=== PATIENT | male | born 1980 | race Two or more races ===

== ENCOUNTER 2016-04-09 13:27 | Observation (INO) | payer OTHER ==
[2016-04-09] MEDS ORDERED: MESNA IVPB ONE (15:00)
[2016-04-09] MEDS ORDERED: NS 0.9% IVPB ONE (15:00)
[2016-04-09] MEDS ORDERED: IFOSFAMIDE IVPB ONE (15:00)
[2016-04-09] MEDS ORDERED: Ondansetron INJ* 2 MG/ML VIAL IV PRN (16:16)
[2016-04-09] MEDS ORDERED: Prochlorperazine TAB* 10 MG PO PRN ×2 (16:17→16:36)
[2016-04-09] MEDS ORDERED: ALPRAZolam TAB* 0.5 MG PO PRN (16:36)
[2016-04-09] MEDS ORDERED: Ondansetron TAB* 4 MG PO PRN (16:36)
[2016-04-09] MEDS ORDERED: HYDROcodone/ACETAMIN 5-325 MG* 1 TAB PO PRN (16:36)
[2016-04-09] MEDS ORDERED: LORazepam TAB(*) 0.5 MG PO PRN (16:38)
[2016-04-09] MEDS ORDERED: NS 0.9% 1000 ML* 1,000 ML IV ONE (16:45)
[2016-04-09] MEDS: NS 0.9% 1000 ML* 1,000 ML IV SCH ×2 (19:00→22:48)
[2016-04-10] MEDS: NS 0.9% 1000 ML* 1,000 ML IV SCH ×2 (05:32→12:20)
[2016-04-10] MEDS ORDERED: Omeprazole CAP* 20 MG PO SCH (09:00)
[2016-04-10] MEDS ORDERED: Citalopram TAB* 40 MG PO SCH (09:00)
[2016-04-10] MEDS ORDERED: Prenatal Vitamin TAB PO SCH (09:00)
--- NOTE | 2016-04-10 10:11 | DS ---
- Discharge Summary BRIEF OBV DISCHARGE SUMMARY ADMIT DATE: 04/09/2016 DISCHARGE DATE:04/10/2016 DISCHARGE MEDICATIONS: RESUME ALL HOME MEDS START NEUPOGEN 480 MCG DAILY TOMORROW DISCHARGE FOLLOW UP: 1. Dr. Mendes at [facility] 04/[address] Foster 04/25 HOSPITAL COURSE: David was admitted for cycle 2 of R-ICE for DLBCL on 04/09/2016. He tolerated this well and was discharged on 04/10/2016. His CT on the Thursday prior to admission shows mild progression of his disease concerning for primary refractory disease. Scan was done for mild but persistent SOB. I decided to treat with cycle 2 while awaiting work up at [facility], however I do not think he will be an immediate candidate for high dose chemotherapy. I will discuss with Dr. Mendes.
[2016-04-10] MEDS ORDERED: NS 0.9% IVPB ONE (15:00)
[2016-04-10] MEDS ORDERED: ETOPOSIDE IVPB ONE (15:00)
[2016-04-10 15:41] VITALS: BP 127/68
[2016-04-10] MEDS ORDERED: NS 0.9% 1000 ML* 1,000 ML IV ONE (16:45)
[2016-04-10] MEDS ORDERED: Dexamethasone IV* 8 MG in NS 0.9% 50 ML* 50 ML IVPB ONE (17:30)
[2016-04-10 18:43] LABS: Hematocrit 24 % (42-52); Hemoglobin 7.9 g/dl (14.0-18.0); Mean Corpuscular HGB Conc 33 g/dl (31-36); Mean Corpuscular Hemoglobin 29 pg (27-31); Mean Corpuscular Volume 89 fL (80-94); Mean Platelet Volume 9 um3 (7.4-10.4); Red Blood Count 2.71 10^6/ul (4.0-5.4); Red Cell Distribution Width 22 % (10.5-15)
[2016-04-10 18:56] LABS: Albumin 3.4 g/dL (3.2-5.2); BUN/Creatinine Ratio 9.4 (8-20); Calcium 8.4 mg/dL (8.6-10.3); EGFR African American 131.9 (>60); EGFR Non-African American 102.6 (>60); Globulin 2.9 g/dL (2-4); Potassium 3.4 mmol/L (3.5-5.0); Total Bilirubin 0.3 mg/dL (0.2-1.0); Total Protein 6.3 g/dL (6.4-8.9)
== END 2016-04-10 18:45 | disposition home or self-care (01) ==
LOC: INTOOBSV 13:43 → MED 13:43
PROVIDERS: ADMIT Internal Medicine Hematology & Oncology; ATTEND Internal Medicine Hematology & Oncology
DX: C83.30 Diffuse large B-cell lymphoma, unspecified site (principal)
CPT/HCPCS: 36415; 80053; 85025; 96361; 96367; 96372; 96413; 96417; 99217; 99219; A9270-GY; G0378; J1100; J1642; J9181; J9209; J9280

== ENCOUNTER 2016-04-29 21:25 | Inpatient (IN) | payer OTHER ==
[2016-04-29] MEDS ORDERED: Ondansetron INJ* 2 MG/ML VIAL IV ONE ×2 (21:59→23:44)
[2016-04-29] MEDS ORDERED: NS 0.9% 1000 ML* 1,000 ML IV ONE (21:59)
[2016-04-29] MEDS ORDERED: Morphine INJ* 4 MG/ML 1 ML CARPUJECT IV ONE (22:01)
[2016-04-29] MEDS ORDERED: Metoclopramide IV* 5 MG/ML 2 ML VIAL IV ONE (22:02)
[2016-04-29] MEDS ORDERED: diPHENhydraMINE IV* 50 MG/ML 1 ml VIAL (BENADRYL) IV ONE (22:03)
[2016-04-29 22:15] LABS: Hematocrit 18 % (42-52); Mean Corpuscular HGB Conc 34 g/dl (31-36); Mean Corpuscular Hemoglobin 29 pg (27-31); Mean Corpuscular Volume 87 fL (80-94); Mean Platelet Volume 10 um3 (7.4-10.4); Red Blood Count 2.07 10^6/ul (4.0-5.4); Red Cell Distribution Width 20 % (10.5-15); White Blood Count 7.9 10^3/ul (3.5-10.8)
[2016-04-29 22:17] LABS: Comments Flag Yes
[2016-04-29 22:18] LABS: Add Diff/Slide Review? Slide Review Added; Hemoglobin 6.1 g/dl (14.0-18.0)
[2016-04-29 22:20] LABS: Albumin 3.4 g/dL (3.2-5.2); BUN/Creatinine Ratio 8.3 (8-20); EGFR African American 100.1 (>60); EGFR Non-African American 77.8 (>60); Globulin 3.6 g/dL (2-4); Potassium 2.9 mmol/L (3.5-5.0); Total Bilirubin 0.4 mg/dL (0.2-1.0)
[2016-04-29 22:21] LABS: Troponin I 0.01 ng/mL (<0.04)
--- NOTE | 2016-04-29 22:31 | RAD ---
HISTORY: Cough, fever COMPARISONS: March 31, 2016, CT dated April 07, 2016 VIEWS:1: Single frontal portable view of the chest at 10:12 PM FINDINGS: LINES AND TUBES: There is a right-sided chest port from a subclavian approach with the tip overlying the superior vena cava. CARDIOMEDIASTINAL SILHOUETTE: The cardiomediastinal silhouette is normal for portable technique. PLEURA: The costophrenic angles are sharp. No pleural abnormalities are noted. LUNG PARENCHYMA: There has been interval development of confluent alveolar opacification of the right lower lung field. ABDOMEN: The upper abdomen is clear. There is no subphrenic gas. BONES AND SOFT TISSUES: No bone or soft tissue abnormalities are noted. IMPRESSION: RIGHT LOWER LUNG CONSOLIDATION. RECOMMEND FOLLOW-UP UNTIL RESOLUTION.
[2016-04-29 22:48] LABS: C Reactive Protein 200.15 mg/L (< 5.00)
[2016-04-29] MEDS ORDERED: Morphine INJ* 2 MG/ML 1 ML CARPUJECT IV ONE (22:52)
[2016-04-29] MEDS ORDERED: Cefepime(*) 2 GM in NS 0.9% 50 ML* 50 ML IVPB ONE (22:55)
[2016-04-29] MEDS ORDERED: Potassium Chlor TAB* 20 MEQ TAB.ER PO ONE (22:56)
[2016-04-29] MEDS ORDERED: NS 0.9% 50 ML* 50 ML ONE (23:04)
[2016-04-29 23:20] LABS: Magnesium 1.6 mg/dL (1.9-2.7)
[2016-04-29] MEDS ORDERED: Magnesium Oxide TAB* 400 MG PO ONE (23:25)
--- NOTE | 2016-04-29 23:29 | ED ---
Triston Herrmann Anna, scribed for Virgilio Catalan MD on 04/29/16 at 2159 . Headache - HPI Summary HPI Summary: Patient is a 36 y/o male coming to [facility] presenting with a worsening JUAREZ that began four days ago. He describes the severity of the pain as 10/10. He has additionally had emesis, chills, cough, and a fever, most recently recorded as 100.9 at home. Denies diarrhea, sore throat, rhinorrhea, or nasal drip. 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 He just had one unit of blood transfusion yesterday when he was at a regular checkup for his CA. He has B-Cell Lymphoma. His last chemotherapy treatment was 04/14/2016. - History Of Current Complaint Chief Complaint: EDFever Stated Complaint: FEVER,VOMITING/CA PT Time Seen by Provider: 04/29/16 21:52 Hx Obtained From: Patient, Family/Fisher Pot Onset/Duration: Started days ago - Allergies/Home Medications Allergies/Adverse Reactions: Allergies Allergy/AdvReac Type Severity Reaction Status Date / Time Adhesive Tape [Paper Tape] Allergy Intermediate Rash Verified 04/07/16 15:44 PMH/Surg Hx/FS Hx/Imm Hx Endocrine/Hematology History: Denies: Hx Diabetes, Hx Thyroid Disease Cardiovascular History: Reports: Hx Deep Vein Thrombosis, Other Cardiovascular Problems/Disorders - HODGKINS LYMPHOMA Denies: Hx Hypercholesterolemia, Hx Hypertension, Hx Pacemaker/ICD, Hx Peripheral Vascular Disease Respiratory History: Denies: Other Respiratory Problems/Disorders GI History: Reports: Hx Gastroesophageal Reflux Disease Denies: Other GI Disorders History: Denies: Hx Dialysis, Hx Renal Disease Musculoskeletal History: Denies: Hx Arthritis, Hx Rheumatoid Arthritis, Hx Osteoporosis, Other Musculoskeletal History Sensory History: Reports: Hx Contacts or Glasses Denies: Hx Cataracts, Hx Glaucoma, Hx Hearing Aid Opthamlomology History: Reports: Hx Contacts or Glasses Denies: Hx Cataracts, Hx Glaucoma Neurological History: Denies: Hx Headaches, Hx Seizures, Hx Transient Ischemic Attacks (TIA) Psychiatric History: Reports: Hx Anxiety, Hx Depression Denies: Hx Panic Disorder - Cancer History Cancer Type, Location and Year: Hodgkins Lympnoma 6 months ago Hx Chemotherapy: Yes - Surgical History Surgery Procedure, Year, and Place: surgery L arm 1996 - repair of artery/vein( REPAIR OF LACERATION). appendectomy at 9 or 10 yo. BX RIGHT neck Hx Anesthesia Reactions: No Infectious Disease History: No Infectious Disease History: Denies: Traveled Outside the [place] in Last 30 Days - Family History Known Family History: Positive: Other - Bladder CA - Social History Alcohol Use: Rare Alcohol Amount: SOCIAL Hx Substance Use: No Substance Use Type: Reports: Marijuana Substance Use Comment - Amount & Last Used: DAILY Hx Tobacco Use: Yes Smoking Status (MU): Former Smoker Type: Cigarettes Amount Used/How Often: PACK Have You Smoked in the Last Year: No Review of Systems Positive: Fever, Chills Negative: Sore Throat, Nasal Discharge Positive: Cough Positive: Vomiting. Negative: Diarrhea Positive: Headache All Other Systems Reviewed And Are Negative: Yes Physical Exam - Summary Physical Exam Summary: VITAL SIGNS: Reviewed. GENERAL: Patient is a well developed and nourished male who seems pale and fatigued HEAD AND FACE: No signs of trauma. No ecchymosis, hematomas or skull depressions. No sinus tenderness. EYES: PERRLA, EOMI x 2, pale conjunctiva. EARS: Hearing grossly intact. Ear canals and tympanic membranes are within normal limits. MOUTH: Oropharynx within normal limits. NECK: Supple, trachea is midline, no adenopathy, no JVD, no carotid bruit, no c- spine tenderness, neck with full ROM. CHEST: Symmetric, no tenderness at palpation LUNGS: Clear to auscultation bilaterally. No wheezing or crackles. CVS: Regular rate and rhythm, S1 and S2 present, no murmurs or gallops appreciated. ABDOMEN: Soft, non-tender. No signs of distention. No rebound no guarding, and no masses palpated. Bowel sounds are normal. EXTREMITIES: FROM in all major joints, no edema, no cyanosis or clubbing. NEURO: Alert and oriented x 3. No acute neurological deficits. Speech is normal and follows commands. SKIN: Dry and warm Triage Information Reviewed: Yes Vital Signs On Initial Exam: Initial Vitals Temp Pulse Resp BP Pulse Ox 99.3 F 110 18 109/62 96 04/29/16 21:52 04/29/16 21:52 04/29/16 21:52 04/29/16 21:52 04/29/16 21:52 Vital Signs Reviewed: Yes Diagnostics - Vital Signs Vital Signs Temp Pulse Resp BP Pulse Ox 04/29/16 21:52 99.3 F 110 18 109/62 96 - Laboratory Lab Results: Lab Results 04/29/16 04/29/16 04/29/16 Range/Units 21:45 21:45 21:45 WBC 7.9 (3.5-10.8) 10^3/ul RBC 2.07 L (4.0-5.4) 10^6/ul Hgb 6.1 L* (14.0-18.0) g/dl Hct 18 L (42-52) % MCV 87 (80-94) fL MCH 29 (27-31) pg MCHC 34 (31-36) g/dl RDW 20 H (10.5-15) % Plt Count 142 L (150-450) 10^3/ul MPV 10 (7.4-10.4) um3 Neut % (Auto) 80.2 (38-83) % Lymph % (Auto) 8.5 L (25-47) % Berks % (Auto) 11.1 H (1-9) % Eos % (Auto) 0 (0-6) % Baso % (Auto) 0.2 (0-2) % Absolute Neuts (auto) 6.3 (1.5-7.7) 10^3/ul Absolute Lymphs (auto) 0.7 L (1.0-4.8) 10^3/ul Absolute Monos (auto) 0.9 H (0-0.8) 10^3/ul Absolute Eos (auto) 0 (0-0.6) 10^3/ul Absolute Basos (auto) 0 (0-0.2) 10^3/ul Absolute Nucleated RBC 0.02 10^3/ul Nucleated RBC % 0.3 INR (Anticoag Therapy) 1.13 H (0.89-1.11) APTT 28.9 (26.0-36.3) seconds Fibrinogen 579 H (110.8-404.3) mg/dL Sodium 138 (133-145) mmol/L Potassium 2.9 L (3.5-5.0) mmol/L Chloride 99 L (101-111) mmol/L Carbon Dioxide 26 (22-32) mmol/L Anion Gap 13 H (2-11) mmol/L BUN 9 (6-24) mg/dL Creatinine 1.08 (0.67-1.17) mg/dL Est GFR ( Amer) 100.1 (>60) Est GFR (Non-Af Amer) 77.8 (>60) BUN/Creatinine Ratio 8.3 (8-20) Glucose 174 H (70-100) mg/dL Lactic Acid (0.5-2.0) mmol/L Calcium 9.0 (8.6-10.3) mg/dL Total Bilirubin 0.40 (0.2-1.0) mg/dL AST 12 L (13-39) U/L ALT 9 (7-52) U/L Alkaline Phosphatase 74 (34-104) U/L Total Creatine Kinase 77 (10-223) U/L Troponin I 0.01 (<0.04) ng/mL C-Reactive Protein 200.15 H (< 5.00) mg/L B-Natriuretic Peptide ( - 100) pg/mL Total Protein 7.0 (6.4-8.9) g/dL Albumin 3.4 (3.2-5.2) g/dL Globulin 3.6 (2-4) g/dL Albumin/Globulin Ratio 0.9 L (1-3) Influenza A (Rapid) (Negative) Influenza B (Rapid) (Negative) Blood Type Antibody Screen Crossmatch 04/29/16 04/29/16 04/29/16 Range/Units 21:45 21:45 21:45 WBC (3.5-10.8) 10^3/ul RBC (4.0-5.4) 10^6/ul Hgb (14.0-18.0) g/dl Hct (42-52) % MCV (80-94) fL MCH (27-31) pg MCHC (31-36) g/dl RDW (10.5-15) % Plt Count (150-450) 10^3/ul MPV (7.4-10.4) um3 Neut % (Auto) (38-83) % Lymph % (Auto) (25-47) % Berks % (Auto) (1-9) % Eos % (Auto) (0-6) % Baso % (Auto) (0-2) % Absolute Neuts (auto) (1.5-7.7) 10^3/ul Absolute Lymphs (auto) (1.0-4.8) 10^3/ul Absolute Monos (auto) (0-0.8) 10^3/ul Absolute Eos (auto) (0-0.6) 10^3/ul Absolute Basos (auto) (0-0.2) 10^3/ul Absolute Nucleated RBC 10^3/ul Nucleated RBC % INR (Anticoag Therapy) (0.89-1.11) APTT (26.0-36.3) seconds Fibrinogen (110.8-404.3) mg/dL Sodium (133-145) mmol/L Potassium (3.5-5.0) mmol/L Chloride (101-111) mmol/L Carbon Dioxide (22-32) mmol/L Anion Gap (2-11) mmol/L BUN (6-24) mg/dL Creatinine (0.67-1.17) mg/dL Est GFR ( Amer) (>60) Est GFR (Non-Af Amer) (>60) BUN/Creatinine Ratio (8-20) Glucose (70-100) mg/dL Lactic Acid 2.3 H* (0.5-2.0) mmol/L Calcium (8.6-10.3) mg/dL Total Bilirubin (0.2-1.0) mg/dL AST (13-39) U/L ALT (7-52) U/L Alkaline Phosphatase (34-104) U/L Total Creatine Kinase (10-223) U/L Troponin I (<0.04) ng/mL C-Reactive Protein (< 5.00) mg/L B-Natriuretic Peptide 78 ( - 100) pg/mL Total Protein (6.4-8.9) g/dL Albumin (3.2-5.2) g/dL Globulin (2-4) g/dL Albumin/Globulin Ratio (1-3) Influenza A (Rapid) (Negative) Influenza B (Rapid) (Negative) Blood Type O Positive Antibody Screen Negative Crossmatch See Detail 04/29/16 Range/Units 22:32 WBC (3.5-10.8) 10^3/ul RBC (4.0-5.4) 10^6/ul Hgb (14.0-18.0) g/dl Hct (42-52) % MCV (80-94) fL MCH (27-31) pg MCHC (31-36) g/dl RDW (10.5-15) % Plt Count (150-450) 10^3/ul MPV (7.4-10.4) um3 Neut % (Auto) (38-83) % Lymph % (Auto) (25-47) % Berks % (Auto) (1-9) % Eos % (Auto) (0-6) % Baso % (Auto) (0-2) % Absolute Neuts (auto) (1.5-7.7) 10^3/ul Absolute Lymphs (auto) (1.0-4.8) 10^3/ul Absolute Monos (auto) (0-0.8) 10^3/ul Absolute Eos (auto) (0-0.6) 10^3/ul Absolute Basos (auto) (0-0.2) 10^3/ul Absolute Nucleated RBC 10^3/ul Nucleated RBC % INR (Anticoag Therapy) (0.89-1.11) APTT (26.0-36.3) seconds Fibrinogen (110.8-404.3) mg/dL Sodium (133-145) mmol/L Potassium (3.5-5.0) mmol/L Chloride (101-111) mmol/L Carbon Dioxide (22-32) mmol/L Anion Gap (2-11) mmol/L BUN (6-24) mg/dL Creatinine (0.67-1.17) mg/dL Est GFR ( Amer) (>60) Est GFR (Non-Af Amer) (>60) BUN/Creatinine Ratio (8-20) Glucose (70-100) mg/dL Lactic Acid (0.5-2.0) mmol/L Calcium (8.6-10.3) mg/dL Total Bilirubin (0.2-1.0) mg/dL AST (13-39) U/L ALT (7-52) U/L Alkaline Phosphatase (34-104) U/L Total Creatine Kinase (10-223) U/L Troponin I (<0.04) ng/mL C-Reactive Protein (< 5.00) mg/L B-Natriuretic Peptide ( - 100) pg/mL Total Protein (6.4-8.9) g/dL Albumin (3.2-5.2) g/dL Globulin (2-4) g/dL Albumin/Globulin Ratio (1-3) Influenza A (Rapid) Negative (Negative) Influenza B (Rapid) Negative (Negative) Blood Type Antibody Screen Crossmatch Result Diagrams: 04/29/16 21:45 04/29/16 21:45 Lab Statement: Any lab studies that have been ordered have been reviewed, and results considered in the medical decision making process. - Radiology CXR Xray Interpretation: Positive (See Comments) Radiology Interpretation Completed By: Radiologist - IMPRESSION: RIGHT LOWER LUNG CONSOLIDATION. RECOMMEND FOLLOW-UP UNTIL RESOLUTION. - EKG None EKG Interpretation: Pt refused EKG. Headache Course/Dx - Course Assessment/Plan: Patient is a 36 y/o male coming to [facility] presenting with a worsening JUAREZ that began four days ago. He describes the severity of the pain as 10/10. He has additionally had emesis, chills, cough, and a fever, most recently recorded as 100.9 at home. Denies diarrhea, sore throat, rhinorrhea, or nasal drip. 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 He just had one unit of blood transfusion yesterday when he was at a regular checkup for his CA. He has B-Cell Lymphoma. His last chemotherapy treatment was 04/14/2016. Bloodwork shows WBC of 7.9, RBC of 2.07, Hgb of 6.1, Hct of 18, and Platelet count of 142. Potassium is 2.9, for which the patient was given potassium chloride. Glucose is 174, and C-Reactive Protein is 200.15. Influenza A and B are negative. Lactic acid is 2.3. AST is 12. CXR shows right lower lung consolidation, possibly consistent with PNA. Pt was initially given IV fluids, morphine for pain, and Cefepmine for PNA. Pt will be given two units of packed RBC. Discussed case with Dr. Foster from oncology. He recommended blood transfusion, Abx, and admission to the hospitalist. I consulted with Dr. Phan, who accepts the pt for admission. The pt is hemodynamically stable and A & Ox3. - Diagnoses Differential Diagnosis/HQI/PQRI: Migraine, Other - Sepsis, pneumonia, cronchitis , anemia Provider Diagnoses: Symptomatic anemia, B-cell lymphoma, Pneumonia, Hypomagnesemia, Hypokalemia - Physician Notifications Discussed Care Of Patient With: Dr. Foster (oncology) at 2249. He recommends we give two units of blood and admit to hospitalist. Dr. Phan (hospitalist) at 2304. Agrees to accept patient for admission. Discharge - Discharge Plan Condition: Stable Disposition: ADMITTED TO [facility] Referrals: Rashad Foster MD [Primary Care Provider] - The documentation as recorded by the Triston kevin Anna accurately reflects the service I personally performed and the decisions made by , Virgilio Catalan MD.
[2016-04-30] MEDS ORDERED: Docusate CAP* 100 MG PO PRN (00:32)
[2016-04-30] MEDS ORDERED: Al Hydrox/Mg Hydrox/Simet LIQ* 30 ML UDC PO PRN (00:32)
[2016-04-30] MEDS ORDERED: Senna TAB PO PRN (00:32)
[2016-04-30] MEDS ORDERED: Magnesium Hydroxide LIQ* 30 ML UDC PO PRN (00:32)
[2016-04-30] MEDS ORDERED: NS 0.9% 1000 ML* 1,000 ML IV ONE (00:42)
[2016-04-30] MEDS: Acetaminophen TAB* 325 MG PO PRN ×3 (00:49→18:41)
[2016-04-30] MEDS ORDERED: Magnesium Sulfate 1 GM IV* 1 GM/100 ML BAG IV ONE (00:50)
--- NOTE | 2016-04-30 04:07 | HP ---
HISTORY AND PHYSICAL: DATE OF : 82 PRIMARY CARE PHYSICIAN AND ONCOLOGIST: Dr. Rashad Foster. DATE OF ADMISSION: 04/30/16. TIME OF EVALUATION: 29 CHIEF COMPLAINT: Headache and fever. HISTORY OF PRESENT ILLNESS: This is a 36-year-old male with a past medical history of diffuse large B-cell lymphoma, status post chemotherapy and radiation , still with ongoing chemotherapy, now getting RICE for his chemotherapy regimen who presents to the emergency room with persistent headache and a temp. The fiancee provides most of the history and she states he has had a diffuse headache for the past few days with a low grade temp. He was doing okay and was seen at [facility] on the for evaluation for bone marrow transplant. He was also found to have his hemoglobin down to 5. He was given a unit of blood and sent home. Today, he spiked the temp at home to 100.9, with a mild cough, nausea, vomiting, no diarrhea, no abdominal pain. No rash. They also noted on the , he had some slurred speech and leg numbness. The patient's biggest complaint right now is the diffuse headache. No neck tenderness or nuchal rigidity. He denies any chest pain or shortness of breath. He still remains nauseated. Otherwise, remaining review of systems is negative. In the emergency room, the patient had labs, imaging. He was given a liter of normal saline, 2 g of cefepime, Benadryl, magnesium, Reglan, 6 mg total of morphine, 8 mg of Zofran, potassium, and was referred to the hospitalist service for further evaluation. PAST MEDICAL HISTORY: 1. Diffuse large B-cell lymphoma, diagnosed in July 2015, received ABVD and now is on RICE chemotherapy regimen, followed by Dr. Foster. He also had radiation treatment on January 2016. He is also being seen at [facility] for evaluation of bone marrow transplant. 2. Depression/anxiety. 3. GERD. MEDICATIONS: 1. Alprazolam 0.5 mg every 6 hours as needed for anxiety. 2. Ativan 0.5 mg to 1 mg as needed for anxiety, nausea. 3. Celexa 4 mg p.o. daily. 4. [place] 5/325 every 4 hours as needed for pain. 5. Multivitamin. 6. Prilosec 20 mg daily. ALLERGIES: ADHESIVE TAPE. FAMILY HISTORY: Mother alive and healthy. Father is alive. History of bladder cancer and coronary artery disease. SOCIAL HISTORY: The patient is currently unemployed, lives with his fiance, Lurdse Cade who is his healthcare proxy, phone number is [phone]. He quit smoking 3 years ago. At that time, he had a [id number] history. He is a social drinker. He does admit to marijuana use daily. Code status is full code. REVIEW OF SYSTEMS: As mentioned in the HPI. PHYSICAL EXAMINATION VITAL SIGNS: T-max 99.3, down to 98.3; pulse 99; respiratory rate 18; oxygen saturation 96% on room air; blood pressure 103/50. HEENT: The patient with lymphadenopathy, bilateral cervical, nontender. No erythema. Oropharynx: Mucous membranes dry. Pupils are active and icteric. Head: Normocephalic. Cardiac: Tachycardia. No murmurs, rubs, or gallops. NECK: Supple. No nuchal rigidity. LUNGS: Diminished breath sounds. No wheezes, rhonchi, or rales. ABDOMEN: Soft, nontender, nondistended. EXTREMITIES: No clubbing, cyanosis, or edema.+1 DPs. NEUROLOGIC: Alert and oriented x3. No focal neurologic deficits. LABORATORY DATA: White count 7.9, hemoglobin 6.1, hematocrit 18, platelets 142. INR is 1.13. Sodium 138, potassium 2.9, chloride 99, bicarb 26, BUN 9, creatinine 1.08, glucose 174, lactic acid 2.3, magnesium 1.6, AST is 12, CRP is 200. BNP is 78. Flu negative. RADIOGRAPHIC DATA: Chest x-ray shows right lower lobe consolidation. Recommend followup until resolution. IMPRESSION: This is a 36-year-old male with past medical history of diffuse large cell B-cell lymphoma on chemotherapy, status post radiation, who presents to the emergency room with a fever and headache. 1. Fever and headache. Assessment: The patient was found with a right lower lobe pneumonia. He is also anemic, likely secondary to his chemotherapy. He does not have any nuchal rigidity or tenderness to suggest meningitis. He does have a mild cough. I am concerned about his slurred speech and leg numbness few days ago that has since resolved. Plan: We will give him another liter of normal saline and continue him on IV fluids with potassium repletion and magnesium repletion. Continue him on the cefepime and follow up on blood cultures and we will also obtain a head CT. I presume that Oncology will take over his service in the morning. The patient is also getting one unit of PRBCs. Followup H and H in the morning. If head CT is normal and still febrile with headache, consider LP. 2. Anemia. Assessment: Secondary to chemotherapy. Plan: Of note he got a unit of blood two days ago at [facility]. 3. Diffuse large cell B-cell lymphoma. Followup with Oncology in the morning. 4. Depression and anxiety. Continue with Celexa, Ativan, and alprazolam. 5. FEN. Place the patient on regular diet with IV fluids. 6. DVT prophylaxis. The patient scores high risk. We will place him on SCDs. 7. Code status. Full code. PATIENT TIME: Greater than 50 minutes were spent during the history and physical and more than half the time spent in direct patient contact. [id number]/[facility] #: [id number] MTDD
[2016-04-30 06:11] LABS: Comments Flag Yes; Hematocrit 20 % (42-52); Hemoglobin 6.7 g/dl (14.0-18.0); Mean Corpuscular HGB Conc 33 g/dl (31-36); Mean Corpuscular Hemoglobin 29 pg (27-31); Mean Corpuscular Volume 87 fL (80-94); Mean Platelet Volume 9 um3 (7.4-10.4); Red Blood Count 2.33 10^6/ul (4.0-5.4); Red Cell Distribution Width 18 % (10.5-15); White Blood Count 6.8 10^3/ul (3.5-10.8)
[2016-04-30 06:32] LABS: BUN/Creatinine Ratio 7.5 (8-20); Calcium 8.4 mg/dL (8.6-10.3); EGFR African American 118.9 (>60); EGFR Non-African American 92.5 (>60); Magnesium 2.1 mg/dL (1.9-2.7); Potassium 3.7 mmol/L (3.5-5.0)
[2016-04-30] MEDS: Omeprazole CAP* 20 MG PO SCH (07:28)
[2016-04-30] MEDS: Prenatal Vitamin TAB PO SCH (07:28)
[2016-04-30] MEDS: Citalopram TAB* 40 MG PO SCH (07:28)
--- NOTE | 2016-04-30 09:37 | PN ---
Progress Note - Progress Note SOAP: Subjective: feels better this am but not great. still has headaches. reports new onset headaches thursday. had several hours of slurred speech and leg numbness at that time. he was not aware that he was slurring his speech at the time but his family reports that it was clearly abnormal. He went to [place] on Thursday and was found to have a Hb of 5 and given one unit of blood. He was sent home and yesterday had fevers to 100.9 at home and persistent headache. No nausea or vomiting. no photophobia. mild cough but not marked. new neck tenderness on the right only when bending his head down. Objective: Vital Signs Temp Pulse Resp BP Pulse Ox 97.9 F 78 16 142/73 94 04/30/16 07:22 04/30/16 07:22 04/30/16 07:37 04/30/16 07:22 04/30/16 07:36 lying flat in NAD perr eomi no photophobia no nuchal rigidity, tenderness over right side of neck on full extension of neck with no clear palpable adenopathy vesicular bs right base but poor inspiratory effort s1 s2 nl soft nt +bs no le edema A+O x 3, nonfocal neurological exam Laboratory Results - last 24 hr 04/29/16 04/29/16 04/29/16 21:45 21:45 21:45 WBC 7.9 RBC 2.07 L Hgb 6.1 L* Hct 18 L MCV 87 MCH 29 MCHC 34 RDW 20 H Plt Count 142 L MPV 10 Neut % (Auto) 80.2 Lymph % (Auto) 8.5 L [place] % (Auto) 11.1 H Eos % (Auto) 0 Baso % (Auto) 0.2 Absolute Neuts (auto) 6.3 Absolute Lymphs (auto) 0.7 L Absolute Monos (auto) 0.9 H Absolute Eos (auto) 0 Absolute Basos (auto) 0 Absolute Nucleated RBC 0.02 Nucleated RBC % 0.3 INR (Anticoag Therapy) 1.13 H APTT 28.9 Fibrinogen 579 H Sodium 138 Potassium 2.9 L Chloride 99 L Carbon Dioxide 26 Anion Gap 13 H BUN 9 Creatinine 1.08 Est GFR ( Amer) 100.1 Est GFR (Non-Af Amer) 77.8 BUN/Creatinine Ratio 8.3 Glucose 174 H Lactic Acid Calcium 9.0 Magnesium 1.6 L Total Bilirubin 0.40 AST 12 L ALT 9 Alkaline Phosphatase 74 Total Creatine Kinase 77 Troponin I 0.01 C-Reactive Protein 200.15 H B-Natriuretic Peptide Total Protein 7.0 Albumin 3.4 Globulin 3.6 Albumin/Globulin Ratio 0.9 L Influenza A (Rapid) Influenza B (Rapid) Blood Type Antibody Screen Crossmatch 04/29/16 04/29/16 04/29/16 21:45 21:45 21:45 WBC RBC Hgb Hct MCV MCH MCHC RDW Plt Count MPV Neut % (Auto) Lymph % (Auto) [place] % (Auto) Eos % (Auto) Baso % (Auto) Absolute Neuts (auto) Absolute Lymphs (auto) Absolute Monos (auto) Absolute Eos (auto) Absolute Basos (auto) Absolute Nucleated RBC Nucleated RBC % INR (Anticoag Therapy) APTT Fibrinogen Sodium Potassium Chloride Carbon Dioxide Anion Gap BUN Creatinine Est GFR ( Amer) Est GFR (Non-Af Amer) BUN/Creatinine Ratio Glucose Lactic Acid 2.3 H* Calcium Magnesium Total Bilirubin AST ALT Alkaline Phosphatase Total Creatine Kinase Troponin I C-Reactive Protein B-Natriuretic Peptide 78 Total Protein Albumin Globulin Albumin/Globulin Ratio Influenza A (Rapid) Influenza B (Rapid) Blood Type O Positive Antibody Screen Negative Crossmatch See Detail 04/29/16 04/30/16 04/30/16 22:32 05:33 05:33 WBC 6.8 RBC 2.33 L Hgb 6.7 L Hct 20 L MCV 87 MCH 29 MCHC 33 RDW 18 H Plt Count 132 L MPV 9 Neut % (Auto) 77.3 Lymph % (Auto) 8.7 L [place] % (Auto) 13.8 H Eos % (Auto) 0 Baso % (Auto) 0.2 Absolute Neuts (auto) 5.3 Absolute Lymphs (auto) 0.6 L Absolute Monos (auto) 0.9 H Absolute Eos (auto) 0 Absolute Basos (auto) 0 Absolute Nucleated RBC 0.01 Nucleated RBC % 0.1 INR (Anticoag Therapy) APTT Fibrinogen Sodium 138 Potassium 3.7 Chloride 105 Carbon Dioxide 26 Anion Gap 7 BUN 7 Creatinine 0.93 Est GFR ( Amer) 118.9 Est GFR (Non-Af Amer) 92.5 BUN/Creatinine Ratio 7.5 L Glucose 123 H Lactic Acid Calcium 8.4 L Magnesium 2.1 Total Bilirubin AST ALT Alkaline Phosphatase Total Creatine Kinase Troponin I C-Reactive Protein B-Natriuretic Peptide Total Protein Albumin Globulin Albumin/Globulin Ratio Influenza A (Rapid) Negative Influenza B (Rapid) Negative Blood Type Antibody Screen Crossmatch 04/30/16 05:33 WBC RBC Hgb Hct MCV MCH MCHC RDW Plt Count MPV Neut % (Auto) Lymph % (Auto) [place] % (Auto) Eos % (Auto) Baso % (Auto) Absolute Neuts (auto) Absolute Lymphs (auto) Absolute Monos (auto) Absolute Eos (auto) Absolute Basos (auto) Absolute Nucleated RBC Nucleated RBC % INR (Anticoag Therapy) APTT Fibrinogen Sodium Potassium Chloride Carbon Dioxide Anion Gap BUN Creatinine Est GFR ( Amer) Est GFR (Non-Af Amer) BUN/Creatinine Ratio Glucose Lactic Acid 0.6 Calcium Magnesium Total Bilirubin AST ALT Alkaline Phosphatase Total Creatine Kinase Troponin I C-Reactive Protein B-Natriuretic Peptide Total Protein Albumin Globulin Albumin/Globulin Ratio Influenza A (Rapid) Influenza B (Rapid) Blood Type Antibody Screen Crossmatch head CT: official read pending, my read no gross abnormalities cxr: RLL infiltrate Acetaminophen (Tylenol Tab*) 650 mg PO Q4H PRN PRN Reason: FEVER/PAIN Last Admin: 04/30/16 07:28 Dose: 650 mg Al Hydrox/Mg Hydrox/Simethicone (Maalox Plus*) 30 ml PO Q6H PRN PRN Reason: INDIGESTION Alprazolam (Xanax Tab*) 0.5 mg PO Q6H PRN PRN Reason: ANXIETY Citalopram Hydrobromide (Celexa Tab*) 40 mg PO DAILY [facility] Last Admin: 04/30/16 07:28 Dose: 40 mg Docusate Sodium (Colace Cap*) 100 mg PO BID PRN PRN Reason: CONSTIPATION Hydromorphone HCl (Dilaudid Iv*) 1 mg IV SLOW PU Q4H PRN PRN Reason: PAIN Potassium Chloride/Sodium Chloride (Ns 0.9% W/ 20 Meq Kcl 1000 Ml*) 1,000 mls @ 125 mls/hr IV PER RATE KATHIE Cefepime HCl 1 gm/ Sodium (Chloride) 50 mls @ 100 mls/hr IVPB Q12H KATHIE Lorazepam (Ativan Tab(*)) 0.5 mg PO Q6H PRN PRN Reason: NAUSEA Magnesium Hydroxide (Milk Of Magnbritni Liq*) 30 ml PO Q4H PRN PRN Reason: CONSTIPATION Multivitamins ( Vitamin Tab*) 1 tab PO DAILY [facility] Last Admin: 04/30/16 07:28 Dose: 1 tab Omeprazole (Prilosec Cap*) 20 mg PO DAILY [facility] Last Admin: 04/30/16 07:28 Dose: 20 mg Ondansetron HCl (Zofran Inj*) 4 mg IV Q4H PRN PRN Reason: NAUSEA/VOMITING Oxycodone/Acetaminophen (Percocet 5/325 Tab*) 1 tab PO Q4H PRN PRN Reason: Pain Senna (Senokot Tab*) 1 tab PO BID PRN PRN Reason: CONSTIPATION Assessment: 36 yo M w primary refractory DLBCL recently treated with R-ICE chemotherapy presenting with fevers, headaches, an episode of slurred speech and leg numbness and found to have a RLL infiltrate on CXR and marked anemia. I am concerned that this could represent a meningitis (or leptomeningeal carcinomatosis) and have recommended a lumbar puncture. I have discussed with Dr. Alanis. Plan: -cont cefepime for PNA -lumbar puncture for cell count, glucose, protein, gram stain/culture, cytology -recheck CBC this am, inappropriate bump to 2 Units, will confirm and if still low check stool guaiac and hemolysis labs -cont IVFs with potassium repletion full code DVT prophylaxis after LP
[2016-04-30 10:03] LABS: Hematocrit 22 % (42-52); Hemoglobin 7.4 g/dl (14.0-18.0)
[2016-04-30] MEDS: NS 0.9% w/ 20 Meq KCL 1000 ML* 1,000 ML IV SCH ×2 (12:35→21:16)
[2016-04-30] MEDS: HYDROmorphone INJ* 1 MG/ML CARPUJECT SYRINGE IV SLOW PU PRN (13:56)
[2016-04-30] MEDS: Cefepime(*) 1 GM in NS 0.9% 50 ML* 50 ML IVPB SCH (14:19)
[2016-04-30 14:37] LABS: CSF Glucose 64 mg/dL (40-70)
[2016-04-30 14:43] LABS: Body Fluid Appearance Clear
[2016-04-30 14:44] LABS: BF RBC Count #1 0; BF RBC Count #2 0; BF WBC Count #1 3; BF WBC Count #2 1; Body Fluid WBC 2 /mcL; RBC counts within 6%? Yes; WBC counts within 15%? Yes
[2016-04-30 14:53] LABS: Body Fluid Total Cells Counted 13
[2016-04-30] MEDS: Ondansetron INJ* 2 MG/ML VIAL IV PRN (18:10)
[2016-04-30] MEDS: LORazepam TAB(*) 0.5 MG PO PRN (18:36)
[2016-04-30] MEDS: ALPRAZolam TAB* 0.5 MG PO PRN (21:05)
[2016-05-01] MEDS: oxyCODONE/Acetamin 5/325 MG* TAB PO PRN (00:26)
[2016-05-01] MEDS: LORazepam TAB(*) 0.5 MG PO PRN ×2 (00:29→06:29)
[2016-05-01] MEDS: Cefepime(*) 1 GM in NS 0.9% 50 ML* 50 ML IVPB SCH ×2 (00:30→12:10)
[2016-05-01] MEDS: Ondansetron INJ* 2 MG/ML VIAL IV PRN ×2 (00:30→06:30)
[2016-05-01] MEDS: NS 0.9% w/ 20 Meq KCL 1000 ML* 1,000 ML IV SCH ×2 (05:22→13:30)
[2016-05-01] MEDS: HYDROmorphone INJ* 1 MG/ML CARPUJECT SYRINGE IV SLOW PU PRN (06:30)
[2016-05-01 07:10] LABS: Hematocrit 22 % (42-52); Hemoglobin 7.4 g/dl (14.0-18.0); Mean Corpuscular HGB Conc 34 g/dl (31-36); Mean Corpuscular Hemoglobin 29 pg (27-31); Mean Corpuscular Volume 87 fL (80-94); Mean Platelet Volume 10 um3 (7.4-10.4); Red Blood Count 2.54 10^6/ul (4.0-5.4); Red Cell Distribution Width 18 % (10.5-15); White Blood Count 11.2 10^3/ul (3.5-10.8)
[2016-05-01 07:26] LABS: Albumin 3.1 g/dL (3.2-5.2); BUN/Creatinine Ratio 7.2 (8-20); Calcium 8.6 mg/dL (8.6-10.3); EGFR African American 135.6 (>60); EGFR Non-African American 105.4 (>60); Globulin 3.3 g/dL (2-4); Potassium 3.9 mmol/L (3.5-5.0); Total Bilirubin 0.5 mg/dL (0.2-1.0); Total Protein 6.4 g/dL (6.4-8.9)
[2016-05-01] MEDS: Prenatal Vitamin TAB PO SCH (08:20)
[2016-05-01] MEDS: Omeprazole CAP* 20 MG PO SCH (08:20)
[2016-05-01] MEDS: Citalopram TAB* 40 MG PO SCH (08:20)
--- NOTE | 2016-05-01 09:11 | PM ---
PROCEDURE NOTE: DATE OF VISIT: 04/30/16 CHIEF COMPLAINT: Headache and fever. HISTORY: The patient is a 36-year-old male who is an inpatient in room 411. The patient has a past history of diffuse large B-cell lymphoma, status post chemotherapy and radiation. He presented to the emergency room with persistent headache and temperature. He has been in the hospital for those complaints. He has been doing ongoing chemotherapy and was seen at [place] on the 28 of April f or an evaluation of bone marrow transplant. He was found to have a hemoglobin of 5 and was given a unit of blood and sent home. On 04/30 his fever spiked to 100.9 with a mild cough, nausea, vomiting , no diarrhea, no abdominal pain and was admitted to the hospital. He states on the 27 of April , he had some slurred speech and leg numbness. Now the patient's biggest complaint is the diffuse h eadache. No neck tenderness or nuchal rigidity. I was asked by Dr. Holloway to perform a diagnosti c lumbar puncture. PAST MEDICAL HISTORY: Significant for: 1. Diffuse large B-cell lymphoma diagnosed in July 2015. 2. Depression and anxiety. 3. GERD. MEDICATIONS: 1. Alprazolam 0.5 mg every 6 hours as needed for anxiety. 2. Ativan 0.5 mg to 1 mg as needed for anxiety, nausea. 3. Celexa 40 mg per day. 4. Prilosec 20 mg a day. 5. Acetaminophen 650 mg p.o. q.4 hours p.r.n. 6. Colace 100 mg p.o. b.i.d. p.r.n. 7. Zofran 4 mg IV q.4 hours p.r.n. 8. Oxycodone/acetaminophen 5/325 mg 1 tablet p.o. q.4 hours p.r.n. pain. 9. Senna 1 tablet p.o. b.i.d. 10. Hydromorphone 1 mg slow IV q.4 hours p.r.n. pain. 11. Cefepime 1 g q.12 hours. ALLERGIES: ADHESIVE TAPE and PENICILLIN. SOCIAL HISTORY: The patient is unemployed, lives with his fiancee, who is his healthcare proxy. He quit smoking 3 years ago. He is a social drinker. REVIEW OF SYSTEMS: Positive for the neurologic symptoms with headache and also fever, remaining rev iew of systems is negative. PHYSICAL EXAMINATION: The patient is lying in bed complaining of headache and feeling cold. His vi yenny signs show a temperature of 97.9, pulse 78, respirations 17, O2 sat 94%, blood pressure is 142/7 3. He is able to move all extremities and can go from lying to sitting without difficulty. Lungs a re clear. Heart: Regular rate and rhythm. LABORATORY ANALYSIS: Shows a white blood count of 6.8, hemoglobin 6.7, hematocrit 20 with a repeat at 8 a.m. today showing a hemoglobin 7.4 and hematocrit of 22, platelet count is 132,000. Sodium 13 8, potassium 3.7, chloride 105, carbon dioxide 26, BUN 7, creatinine 0.93, glucose is 123. INR was 1.13. PTT 28.9. ASSESSMENT AND PLAN: Fever, headache, and malaise and the patient with B-cell lymphoma. Dr. Art ll requested a diagnostic lumbar puncture today to rule out leptomeningeal carcinomatosis versus inf ectious etiology. I had a chance to discuss the procedure with the patient, the risks, the benefits and alternatives, of therapy. The risks included postdural puncture headache, bleeding, infection, nerve injury, and after going over those risks, benefits, and alternatives, informed consent was ob tained. PROCEDURE NOTE: The patient was placed in a sitting position. His low back prepped and draped in u sual sterile fashion. 3 mL of 1% lidocaine was used for local anesthesia at the L3-L4 interspace. A 20 gauge introducer was passed into the interspinous space at L3-L4 followed by a 25 gauge Pencan needle. There was a good free flow of clear cerebrospinal fluid. There were no paresthesias, blood noted. I proceeded to collect 4 vials of clear cerebrospinal fluid which will be sent to laborator y per Dr. Holloway's orders. The needle and introducer were withdrawn. The patient tolerated the p rocedure well. [id number]/[facility] #: [id number]
--- NOTE | 2016-05-01 09:30 | RAD ---
INDICATION: Hypoxia and fever. COMPARISON: Comparison is made with a prior CT of the chest from April 07, 2016 and a prior chest x-ray study from April 29 2016. TECHNIQUE: A CT scan of the chest was performed without intravenous contrast. Contiguous axial sections were obtained from the lung apices through the lung bases. Images were reconstructed in the coronal and sagittal planes. FINDINGS: There is a groundglass infiltrate present throughout the right lung involving the right middle and lower lobes. Within the diffuse infiltrate there are smaller more focal areas of consolidation. In addition there are peripheral smaller patchy groundglass infiltrates present in the left upper and lower lobes. There is a small right pleural effusion. The infiltrates appear more extensive than seen on the prior chest x-ray study from 2 days earlier. There are large confluent lymph nodes present in the anterior mediastinum adjacent to the aortic arch and great vessels. There are prominent lymph nodes in the right paratracheal, pretracheal and subcarinal regions. These measure up to 3.0 cm in transverse dimension in the right paratracheal region and appear unchanged immediately from the prior study. There is mild compression and mass effect on the trachea which is unchanged. The heart is within normal limits in size. No pericardial effusion is present. The thoracic aorta is normal in caliber. No significant focal osseous abnormality is seen. IMPRESSION: 1. SMALL RIGHT PLEURAL EFFUSION AND LARGE GROUNDGLASS INFILTRATE PRESENT THROUGHOUT THE RIGHT LUNG WITH SMALLER PATCHY PERIPHERAL GROUNDGLASS INFILTRATES WITHIN THE LEFT LUNG. THESE FINDINGS HAVE PROGRESSED FROM THE PRIOR CHEST X-RAY STUDY. CONSIDER BACTERIAL PNEUMONIA WELL OPPORTUNISTIC INFECTION SUCH PNEUMOCYSTIS, CYTOMEGALOVIRUS OR HERPES SIMPLEX PNEUMONIA, EOSINOPHILIC PNEUMONIA, IDIOPATHIC INTERSTITIAL PNEUMONIAS AND ARDS. 2. MEDIASTINAL LYMPHADENOPATHY, UNCHANGED.
[2016-05-01] MEDS ORDERED: Vancomycin per Pharmacy* NOTE FOLLOW UP PRN (09:54)
[2016-05-01] MEDS: Azithromycin IV(*) 500 MG in NS 0.9% 250 ML* 250 ML IVPB SCH (10:26)
[2016-05-01] MEDS ORDERED: Voriconazole(*) 200 MG VIAL IV SCH (11:00)
[2016-05-01] MEDS ORDERED: NS 0.9% IVPB SCH (12:00)
[2016-05-01] MEDS ORDERED: VORICONAZOLE IVPB SCH (12:00)
[2016-05-01 12:22] LABS: Magnesium 1.8 mg/dL (1.9-2.7); Phosphorus 2.5 mg/dL (2.5-5.0)
[2016-05-01] MEDS ORDERED: NS 0.9% w/ 20 Meq KCL 1000 ML* 1,000 ML IV SCH (12:49)
[2016-05-01] MEDS ORDERED: Vancomycin(*) 1,500 MG in NS 0.9% 250 ML* 250 ML IVPB ONE (13:00)
--- NOTE | 2016-05-01 13:01 | CONSULT ---
Consult Consult: CRITICAL CARE MEDICINE DATE: 05/01/16 TIME: 1100 PRIMARY CARE PROVIDER: Kristin REFERRING PROVIDER: Jewel REASON/CHIEF COMPLAINT: Acute hypoxic resp failure HISTORY OF PRESENT ILLNESS: 36 M with diffuse large B cell lymphoma, originally thought to have refractory Hodgkin's lymphoma given ABVD chemo and XRT; f/u at [facility] since he was not responding and deemed to have B cell and started on RICE (Rituxan, Ifosfamide, Carboplatin, Etoposide) tx. First RICE tx end of Feb, out on neupogen; at [facility] consideration for BMT needs and then most recent RICE Apr 11. Started Thursday with c/o unwell feeling. Progressive decline with JUAREZ, fever. Presented with R sided infiltrate and anemia. Admitted. Recieved 2 units PRBCS early am 04/30. Tolerating but fever overnight; remained mostly tachy, and then started with increased O2 requirements. CT ordered and transfer to ICU on HFO2. REVIEW OF SYSTEMS: As per HPI. feels a bit better at present. PAST MEDICAL HISTORY: As per HPI. Has port. MEDICATIONS: Reviewed. ALLERGIES: Reviewed. PCN - sob SOCIAL HISTORY: Reviewed. Lives with Lurdes (Fiance, proxy). 20ppy history but quite 3 years ago. FAMILY HISTORY: bladder ca PHYSICAL EXAM: balding post chemo, obese Vital Signs: Reviewed. RR down to low 20s. Hr 80s. SBP >100. Neurologic: communcating; nonfocal. HEENT: anicteric, mm dry Cardiovascular: S1 S2, no m. port intact. Respiratory: Diffuse squalk on Right. Left is clear. Abdomen: obese, soft, nt Extremities: warm, no edema Access: port LABS: Reviewed. IMAGING: Reviewed. CT's reviewed and reviewed with pts fiance and mother. MEDICATIONS: Reviewed. ASSESSMENT: 36 M Acute hypoxic respiratory failure Acute interstitial pneumonitis vs aveolitis Tx for HCAP, vs potential opportunistic Diffuse large B cell lymphoma on RICE tx Anemia of acute disease and post chemotx Hyperglycemia Depression/anxiety PLAN: Neurologic: awake, communicating fine. neg LP thusfar. Cardiovascular: Perfusing. Vol status up a bit interstitially, but need to maintain as is for now. wouldn't force mobilization yet. All the same, wouldn't try to overload with lung water either as he is sequestering as he will receive plent of rx volume today. Access is poor and will place picc given needs and potential needs. Respiratory: Rescued on HFO2. WOB tolerable and see if we can maintain. Worry is more for pure V/Q mismatch given degree of airspace disease. If this only progresses will provide early intubation. Now that he looks better, would attempted wean back in FiO2 and flow to see where his needs truly are. If cannot tolerate low level HFO2, he unlikely to maintain then well on HFO2 and if his lungs decline more he will adapt poor to ppv transition needs. At the same time, he needs dx bronchm but resp status too unstable at moment and would not intubate for procedure alone. Time will show direction. DDx is quite broad still. Clinical picture is more concerning for dense aveolitis/pneumonitits or acute interstitial pneumonitis rather then more typical pneumonia. However needs broad spectrum abx coverage, including atypical and opportunistic. Further diagnostic needs with bronch as well. Explained to family potential for early intubation needs. Gastrointestinal: can have po still. ppi as prior Renal/Metabolic: stable function. follow fluid needs. Infectious Disease: on C4. Add vanco and azithro; although vanco may not add much, needs for now and certainly anticipate atypical coverage for 5 days. Will defer further add ons to ID currently. ?vori, bactrim, .. Hematology: Post blood transfusions now and more stable Hb number. Doubt trali given ul and time. LDH mild. Onc following. Endocrine: question will be if steroid responsive interstitial disease needs. not needing at present but consider. hyperglu reactive. Musculoskeletal: slow and steady Psych/Social: celexa. family at bedside updated Supportive and preventative care as ordered. SUP: ppi VTE prophylaxis: needs chemical vte prophylaxis but has refused previously. lovenox order. Disposition: ICU Code Status: Full D/w Dr. Holloway. Critical Care Time: 65min F. Neeraj Rothman,
--- NOTE | 2016-05-01 13:46 | RAD ---
INDICATION: Headache COMPARISON: None. TECHNIQUE: Contiguous axial sections of the brain were obtained from the skull base to the vertex without contrast. FINDINGS: The ventricles, cisterns and sulci are within normal limits. The giordano-white matter differentiation is adequately maintained and there is no sulcal effacement. No significant focal abnormality or mass effect is present. There is no evidence for intracranial hemorrhage. No significant focal osseous abnormality is present. The visualized portion of the paranasal sinuses and mastoid air cells appear clear. IMPRESSION: Normal CT of the brain.
[2016-05-01] MEDS: Sulfamethox/Trimethoprim DS 800/160* TAB PO SCH (18:16)
--- NOTE | 2016-05-01 20:36 | CONS ---
PULMONARY CONSULTATION REPORT: DATE OF CONSULT: 05/01/16 CONSULTATION REQUESTED BY: Dr. Rothman. REASON FOR CONSULT: Evaluation of hypoxemia, abnormal CT chest. HISTORY OF PRESENT ILLNESS: The patient is a 36-year-old male with a history of diffuse large B-cell lymphoma, status post chemo and radiation therapy with ongoing chemotherapy. The patient presented to the emergency room with headaches and fevers. The patient also had low-grade temperature at home. He was seen in [place] on 28 of April for evaluation of bone marrow transplant. His hemoglobin was found to be low at 5. He had 1 unit PRBC transfusion and was sent home. The patient had fever of 100.9 associated with cough, nausea, and vomiting prior to admission to the emergency room. The patient denied diarrhea, abdominal pain, rash, or neck stiffness. The patient has slurred speech and numbness in lower extremities. He was noted to have low white count upon admission. He was admitted for further evaluation of headache and fever. The patient during the current hospitalization continued to worsen. The patient was found to be hypoxemic with a worsening hypoxemic respiratory failure and was transferred to ICU for close monitoring. He is currently on high-flow O2. The patient received another 2 units of PRBCs on April 30. He remained tachy along with hypoxemia while on the floor. The patient had CT scan of the chest performed this morning. I personally reviewed CT scan of the chest. The patient noted to have diffuse ground-glass opacities with some crazy -paving pattern on the right lung with involvement of entire right lung. There is only very patchy peripheral ground-glass opacities peripherally in the left lung. In comparison with his prior CT scan done a month ago, this has been a significant change. The patient also noted to have mediastinal adenopathy. The patient was seen and examined by me at bedside earlier today. The patient reports feeling better. He reports his headache is improved. The patient denies cough, shortness of breath, or chest pain. The patient is still requiring high-flow oxygen. PAST MEDICAL HISTORY: 1. Diffuse large B-cell lymphoma diagnosed in July of 2015, status post ABVD, now on RICE chemotherapy. The patient also had radiation treatment in January of 2016. He was recently seen for bone marrow transplantation at [facility]. 2. Depression and anxiety. 3. GERD. MEDICATIONS: 1. Alprazolam 0.5 mg q.6 hours as needed for anxiety. 2. Ativan 0.5 mg 1 tablet as needed for anxiety. 3. Celexa 4 mg daily. 4. [place] every 4 hours as needed for pain. 5. Multivitamin. 6. Prilosec 20 mg daily. ALLERGIES: ADHESIVE TAPE. FAMILY HISTORY: Mother alive and healthy. Father is alive. History of bladder cancer and coronary artery disease in family. SOCIAL HISTORY: The patient quit smoking 3 years ago, smoked 20 pack years prior to that. Social drinker. Admits to marijuana use. REVIEW OF SYSTEMS: As per HPI. PHYSICAL EXAM: The patient in bed, in no apparent distress. Vital Signs: Temperature 98.2, pulse 79 beats per minute, respiratory rate 15 per minute, O2 sat 96% on 10 L high flow. HEENT: Pupils equal, reactive to light. Mucous membranes moist. Lymphatic System: Cervical lymphadenopathy palpable. Neck: Supple. No JVD. Lungs: Good air entry bilaterally. No wheezes or rales present on the right lung. Abdomen: Soft, nontender, nondistended. Bowel sounds present. Extremities: No cyanosis or clubbing. Neurological: Alert, awake, and oriented x3. No focal deficits. DIAGNOSTIC STUDIES/LAB DATA: WBC count 11.2, hemoglobin 7.4, hematocrit 22, platelet count 172. INR 1.13. Sodium 136, potassium 3.9, chloride 103, bicarb 26, creatinine 0.83, glucose 103. Lactic acid 2.3 on admission, 0.6 today. LDH 283. BNP within normal limits. Albumin 3.1. CT scan of the chest as described above in HPI. CSF analysis showed 2 wbc's, lymphocytes predominant with normal cytology, normal glucose, and elevated protein. IMPRESSION AND RECOMMENDATIONS: 36-year-old male with diffuse large B-cell lymphoma, status post chemo and radiation in January ,with worsening hypoxemia , fever, headache with diffuse infiltrates with ground-glass opacities and air- bronchograms predominantly in the right lung with broad differential. Infectious versus inflammatory versus interstitial lung disease. Infectious cause is also broad including pneumocystis pneumonia, viral, fungal, bacterial etiologies. Prior imaging in Mar 2016 was suggestive of GGO in right lung which are more pronounced currently Other causes of diffuse lung disease especially with unilateral predominance like radiation-induced lung disease(received XRT in Jan 2016), lymphangitic spread of cancer(usually with solid tumors), aspiration pneumonia also in the differential. Alveolar proteinosis would have similar radiological presentation and also be with unilateral involvement; however, less likely in the differential compared to other etiologies. Agree with broad-spectrum antibiotics. Consider empirical coverage for pneumocystis pneumonia. Would consider steroids for possibility of severe PCP infection and radiation pneumonitis TRALI is also possibility as it prefers to involve rt lung predominantly. Continue with O2 supplementation. The patient requiring high-flow and high FiO2 requirements, unstable for bronchoscopy at this time. Would perform bronchoscopy once the patient is more stable or if he gets intubated during the process due to worsening lung disease. Continue close monitoring in ICU. Thank you for allowing me to participate in the care of your patient. Will follow up with you. D/w Dr Glover and pt and his family at bedside. [id number]/[facility] #: [id number] WILBERT
--- NOTE | 2016-05-01 20:44 | CONS ---
CONSULTATION REPORT: DATE OF CONSULTATION: 05/01/16 REQUESTING PHYSICIAN: Dr. Holloway. CONSULTING SERVICE: Infectious Disease. REASON FOR CONSULT: Fever, pulmonary infiltrate. IMPRESSION: 1. Hypoxia, diffuse right lung infiltrate which includes ground glass opacification and a few scattered areas on the left in the setting of large B- cell lymphoma, previous ABVD chemotherapy, now RICE. Given the use of rituximab , he is at risk for various opportunistic infections that include those typical of low CD4 count as well as viral infection. The differential includes community acquired pneumonia and atypicals to along with it, viral infections including human metapneumovirus, less likely adeno virus without conjunctivitis , fungal infections, aspergillosis is possible, although not in particular neutropenia, pneumocystis I think is on the list as well. His lack of symptoms plus hypoxia and diffuse infiltrate is concerning for pneumocystis. I think CMV is less likely but possible. 2. Acute hypoxemic respiratory failure. 3. Diffuse large B-cell lymphoma, on chemotherapy. 4. Right chest port. 5. PENICILLIN ALLERGY. He did have a transfusion on day of admission. It seems TRALI is in the differential. RECOMMENDATIONS: 1. Continue vancomycin goal trough 10 to 15, cefepime, azithromycin, voriconazole. We will add Bactrim 2 double strength tabs by mouth every 6 hours and prednisone 40 mg by mouth twice daily to cover pneumocystis. 2. Check a nasal swab for human metapneumovirus and a CMV PCR with blood. He is not coughing, so I doubt we will get a sputum from him for cultures. As long as he continues to improve, we will hold off on broadening his coverage. HISTORY OF PRESENT ILLNESS: This is a 36-year-old male with diffuse large B- cell lymphoma, receiving chemotherapy, RICE, has a right chest port. He has had subacute malaise and then over the weekend, had some headache and word finding difficulties with slurred speech, kept that to himself, then developed a headache on the 7th as well as a fever. He has had a hemoglobin of 5 and had a blood transfusion the day he came to the hospital. A chest x-ray at that time showed a right lower lung consolidation. A brain CT showed no acute changes. LP was done, there were 2 white cells. Because of recurrence of fever and progressive hypoxia, a CT of the chest was obtained this morning that showed small right pleural effusion, large ground glass infiltrate throughout the right lung with small patchy peripheral ground glass infiltrates in the left lung. He denies cough, dyspnea or fever and he said his headache has resolved. He feels well, not sure why we were doing all this to him hospital. He has no sick contacts. He has pet dog at home. No travel. His fiance has not been sick. Her kids have had some viral symptoms. PAST MEDICAL HISTORY: 1. Diffuse large B-cell lymphoma, history of ABVD therapy and now RICE. 2. Right chest port. 3. Depression. 4. Anxiety. 5. Gastroesophageal reflux disease. MEDICATIONS: 1. Xanax p.r.n. 2. Tylenol. 3. Celexa. 4. Enoxaparin. 5. Hydromorphone. 6. Cefepime 1 g every 12 hours. 7. Omeprazole. 8. Senna. 9. Vancomycin 1250 mg every 8 hours. 10. Voriconazole 400 mg every 12 hours. 11. Azithromycin 500 mg every 24 hours. ALLERGIES: PENICILLIN. FAMILY HISTORY: No recurrent infections. No tuberculosis. SOCIAL HISTORY: He lives in [place] with his fiance and her children. They have a pet dog. No travel. No sick contacts. No injection drugs. REVIEW OF SYSTEMS: All negative except as noted above. PHYSICAL EXAM: Vital Signs: Temperature 37, heart rate 90, respiratory rate 17 , blood pressure 97/56, O2 saturation 100% on 10 L a minute. General: He is awake, not in distress. HEENT: There is no conjunctival hemorrhage. Oropharynx without lesions. Neurologically, he is oriented x3. Follows all commands. Moves all extremities. Neck is supple without nuchal rigidity. Lymph nodes: There is no cervical, supraclavicular, inguinal, axillary or epitrochlear lymphadenopathy. Heart: Regular rate and rhythm without murmurs, rubs, or gallops. Lungs: There are no wheezes, rales, or rhonchi. There are decreased breath sounds at the right base. Abdomen: Soft, nontender, nondistended. Skin: There is no rash or splinter hemorrhages. Musculoskeletal : There is no spine tenderness to palpation. No joint synovitis. There is a right chest port without swelling, erythema or tenderness. DIAGNOSTIC STUDIES/LAB DATA: White blood cell count 11, hemoglobin 7, platelets 172, creatinine is 0.8, bilirubin is 0.5. LDH is 283. BNP is 78. Blood cultures negative at 24 hours. Influenza PCR negative. CSF Gram stain negative. Culture negative at 24 hours. Thanks for asking me to see Mr. Anton in consultation. Please see impressions and recommendations outlined above. [id number]/[facility] #: [id number] MTDD
[2016-05-01] MEDS: predniSONE TAB* 20 MG PO SCH (20:51)
[2016-05-01] MEDS: Vancomycin(*) 1,250 MG in NS 0.9% 250 ML* 250 ML IVPB SCH (20:52)
[2016-05-01] MEDS: ALPRAZolam TAB* 0.5 MG PO PRN (21:07)
[2016-05-01] MEDS: Acetaminophen TAB* 325 MG PO PRN (21:22)
[2016-05-02] MEDS ORDERED: VORICONAZOLE IVPB ONE ×2
[2016-05-02] MEDS ORDERED: NS 0.9% IVPB ONE ×2
[2016-05-02] MEDS: Sulfamethox/Trimethoprim DS 800/160* TAB PO SCH ×5 (00:58→23:52)
[2016-05-02] MEDS: Cefepime(*) 1 GM in NS 0.9% 50 ML* 50 ML IVPB SCH ×2 (00:58→10:45)
[2016-05-02 01:02] LABS: Urine Bilirubin Negative (Negative); Urine Glucose Negative (Negative); Urine Nitrite Negative (Negative)
[2016-05-02] MEDS: Vancomycin(*) 1,250 MG in NS 0.9% 250 ML* 250 ML IVPB SCH ×3 (04:43→20:25)
[2016-05-02 06:27] LABS: Hematocrit 17 % (42-52); Mean Corpuscular HGB Conc 33 g/dl (31-36); Mean Corpuscular Hemoglobin 29 pg (27-31); Mean Corpuscular Volume 88 fL (80-94); Mean Platelet Volume 9 um3 (7.4-10.4); Red Blood Count 1.92 10^6/ul (4.0-5.4); Red Cell Distribution Width 18 % (10.5-15); White Blood Count 9.4 10^3/ul (3.5-10.8)
[2016-05-02 06:36] LABS: Comments Flag Yes
[2016-05-02 06:37] LABS: Hemoglobin 5.6 g/dl (14.0-18.0)
[2016-05-02 06:58] LABS: BUN/Creatinine Ratio 10.5 (8-20); Calcium 8.5 mg/dL (8.6-10.3); EGFR African American 150.1 (>60); EGFR Non-African American 116.7 (>60); Magnesium 1.8 mg/dL (1.9-2.7); Phosphorus 3.2 mg/dL (2.5-5.0); Potassium 4.6 mmol/L (3.5-5.0)
[2016-05-02] MEDS: Azithromycin IV(*) 500 MG in NS 0.9% 250 ML* 250 ML IVPB SCH (08:58)
[2016-05-02] MEDS: Prenatal Vitamin TAB PO SCH (09:13)
[2016-05-02] MEDS: predniSONE TAB* 20 MG PO SCH ×2 (09:13→20:24)
[2016-05-02] MEDS: Omeprazole CAP* 20 MG PO SCH ×2 (09:13→20:25)
[2016-05-02] MEDS: Citalopram TAB* 40 MG PO SCH (09:13)
--- NOTE | 2016-05-02 09:46 | PN ---
Progress Note - Progress Note SOAP: Subjective: []Breathing is fine laying still. Sitting up or any movement and SOB. Fever last night to 103.3. No nausea with Bactrim, not in pain. Acetaminophen (Tylenol Tab*) 650 mg PO Q4H PRN PRN Reason: FEVER/PAIN Last Admin: 05/01/16 21:22 Dose: 650 mg Al Hydrox/Mg Hydrox/Simethicone (Maalox Plus*) 30 ml PO Q6H PRN PRN Reason: INDIGESTION Alprazolam (Xanax Tab*) 0.5 mg PO Q6H PRN PRN Reason: ANXIETY Last Admin: 05/01/16 21:07 Dose: 0.5 mg Citalopram Hydrobromide (Celexa Tab*) 40 mg PO DAILY [facility] Last Admin: 05/02/16 09:13 Dose: 40 mg Docusate Sodium (Colace Cap*) 100 mg PO BID PRN PRN Reason: CONSTIPATION Enoxaparin Sodium (Lovenox(*)) 40 mg SUBCUT Q24H [facility] Heparin Sodium (Porcine) (Heparin Flush Picc/Ml/Cvc(*)) 1 - 3 ml FLUSH 0600, 1800 KATHIE PRN Reason: Protocol Last Admin: 05/02/16 05:59 Dose: 1 ml Hydromorphone HCl (Dilaudid Iv*) 1 mg IV SLOW PU Q4H PRN PRN Reason: PAIN Last Admin: 05/01/16 06:30 Dose: 1 mg Cefepime HCl 1 gm/ Sodium (Chloride) 50 mls @ 100 mls/hr IVPB Q12H [facility] Last Admin: 05/02/16 00:58 Dose: 100 mls/hr Azithromycin 500 mg/ Sodium (Chloride) 250 mls @ 250 mls/hr IVPB Q24H [facility] Stop: 05/05/16 11:29 Last Admin: 05/02/16 08:58 Dose: 250 mls/hr Vancomycin HCl 1,250 mg/ (Sodium Chloride) 250 mls @ 166.667 mls/hr IVPB Q8H [facility] Last Admin: 05/02/16 04:43 Dose: 166.667 mls/hr Voriconazole 200 mg/ Sodium (Chloride) 120 mls @ 120 mls/hr IVPB Q12H [facility] Lorazepam (Ativan Tab(*)) 0.5 mg PO Q6H PRN PRN Reason: NAUSEA Last Admin: 05/01/16 06:29 Dose: 0.5 mg Magnesium Hydroxide (Milk Of Magnesia Liq*) 30 ml PO Q4H PRN PRN Reason: CONSTIPATION Multivitamins ( Vitamin Tab*) 1 tab PO DAILY [facility] Last Admin: 05/02/16 09:13 Dose: 1 tab Omeprazole (Prilosec Cap*) 20 mg PO BID [facility] Ondansetron HCl (Zofran Inj*) 4 mg IV Q4H PRN PRN Reason: NAUSEA/VOMITING Last Admin: 05/01/16 06:30 Dose: 4 mg Oxycodone/Acetaminophen (Percocet 5/325 Tab*) 1 tab PO Q4H PRN PRN Reason: Pain Last Admin: 05/01/16 00:26 Dose: 1 tab Pharmacy Consult (Vancomycin Per Pharmacy*) 1 note FOLLOW UP . PRN PRN Reason: PER PROTOCOL Pharmacy Profile Note (Vancomycin Trough Check) 1 note FOLLOW UP ONCE ONE Stop: 05/02/16 12:31 Prednisone (Deltasone Tab*) 40 mg PO BID [facility] Last Admin: 05/02/16 09:13 Dose: 40 mg Senna (Senokot Tab*) 1 tab PO BID PRN PRN Reason: CONSTIPATION Trimethoprim/Sulfamethoxazole (Bactrim Ds 800/160 Tab*) 2 tab PO Q6HR [facility] Last Admin: 05/02/16 06:13 Dose: 2 tab Objective: [] Vital Signs Temp Pulse Resp BP Pulse Ox 98.2 F 85 13 113/53 97 05/02/16 07:45 05/02/16 09:00 05/02/16 09:00 05/02/16 08:36 05/02/16 09:06 T Max 103.3 HEENT - Coating on tong but not hard palate Clear on left and good air movement on right, no wheezing and few crackles, less on exam then would expect based on CT RRR S1S2 +BS and non tender Ext warm, good pulses AAOx3 Assessment: []36 year old immunosuppressed from RICE chemotherapy and lymphoma with right sided pneumonia, diffuse infiltrate. Differential is broad and includes PCP, CMV , atypical bacterial and fungal infection. Could be inflammatory, non infections pneumonitis but less likely. Uncommon patter for disease infiltration but also possible. Plan: []1. Agree with broad antibiotics including Bactrim and follow closely. Bronchoscopy may be needed and would perform immediately if worsens or does not tolerate Bactrim. HFO2 and followed by ICU team. Will check quantitative immunoglobulins, tx to IgG > 500 2. Anemia. Tx 2 UPRBC. Likely poor production and increased consumption in setting of fever. Will check Bean, add Retic to labs this am, check B12. 3. Lymphoma. anti CD-30 is next therapy but will need to clear infection. Discussed with family and best case for additional therapy is 10-14 days. time with patient and chart 9:00 - 9:45 am
[2016-05-02] MEDS: Enoxaparin(*) 40 MG/0.4 ML SYR SUBCUT SCH (10:15)
--- NOTE | 2016-05-02 11:27 | PN ---
Progress Note - Progress Note Note: CRITICAL CARE MEDICINE DATE: 05/02/16 TIME: 900 SUBJECTIVE: Patient seen and examined. Feels ok. does desat when on R side. PHYSICAL EXAM: Vital Signs: Reviewed. RR teens to 20s. Hr 80s. SBP >100. 15L Neurologic: communcating; nonfocal. HEENT: anicteric, mm dry Cardiovascular: S1 S2, no m. port intact. Respiratory: Better BS on Right; good expansion, fine courseness. Left remains clear. Abdomen: obese, soft, nt Extremities: warm Access: port LABS: Reviewed. IMAGING: Reviewed. MEDICATIONS: Reviewed. ASSESSMENT: 36 M Acute hypoxic respiratory failure Acute interstitial pneumonitis vs aveolitis Tx for HCAP, vs potential opportunistic Diffuse large B cell lymphoma on RICE tx Anemia of acute disease and post chemotx Hyperglycemia Depression/anxiety PLAN: Neurologic: stable. Cardiovascular: Perfusing. Vol status up a bit and hold off on extra fluid. can mobilize on his own. Respiratory: off HFO2. WOB stable. Will remain with V/Q mismatch on R but Left is well. Continue lung expansion and time. IS> oob. Would not anticipate HFO2 rescue needs today but still would observe for recovery versus lingering phase. Pulm f/u for hopeful improvement and then dx bronch. Gastrointestinal: po. ppi oupt regimen Renal/Metabolic: stable function. off fluids. Infectious Disease: C4, azithro (5 days anticipated); could consider dc vanco in another day as not likely adding much. Vori, bactrim and ID f/u. Hematology: Anemia - receiving prbcs. onc f/u. Endocrine: on steroids now and hopefully a benefit. Musculoskeletal: oob. ambulate. Psych/Social: celexa. family at bedside updated Supportive and preventative care as ordered. SUP: ppi VTE prophylaxis: lovenox Disposition: ICU today; potential floor tomorrow if improving. Code Status: Full D/w Dr. Foster Critical Care Time: 25min FÁngel Rothman DO
[2016-05-02] MEDS: VORICONAZOLE IVPB SCH ×2 (11:40→23:53)
[2016-05-02] MEDS: NS 0.9% IVPB SCH ×2 (11:40→23:53)
[2016-05-02] MEDS ORDERED: Magnesium Sulfate 2 GM IV* 2 GM/50 ML BAG IVPB ONE (12:00)
[2016-05-02] MEDS ORDERED: Vancomycin Trough Check NOTE FOLLOW UP ONE (12:30)
[2016-05-02 13:41] LABS: Vancomycin Trough 13.5 mcg/mL
[2016-05-02 14:06] LABS: Vitamin B12 > 1450 pg/mL (180-914)
--- NOTE | 2016-05-02 14:07 | PN ---
Progress Note - Progress Note SOAP: Subjective: DOS: 05/02/16 CC: dyspnea HPI: 36 yo man with lymphoma and chemotherapy with dyspnea with exertion, has diffuse right sided infiltrate on chest CT that has developed over last few days. Now a productive cough. Fever overnight. No rash or diarrhea. Energy improved today. No abd pain. Objective: [] Vital Signs Temp 36.9 C 05/02/16 11:22 Pulse 77 05/02/16 13:00 Resp 18 05/02/16 13:51 BP 115/58 05/02/16 12:20 Pulse Ox 93 05/02/16 13:00 Intake & Output 05/01/16 05/02/16 05/02/16 18:59 06:59 18:59 Intake Total 1027.3 2028 1289.9 Output Total 1625 1700 600 Balance -597.7 328 689.9 Weight 228 lb 9.91 oz 225 lb 1.471 oz Intake: IV Fluids 575.3 1318 128.9 NS (0.9%) 6.3 95 36 NS (0.9%) 20 meq KCL 569 1223 92.9 IVPB 452 710 486 abx 452 710 486 Oral 100 Packed Cells 575 Output: Urine 1625 1700 600 Gen:Awake, no distress Neuro: AAOx3, moves all extremities HEENT:PERRL, MMM Neck:Supple Heart:RRR no murmur Lungs:CTA BL Abd:+BS NTND soft Skin: no rash MSK: no spine tenderness or joint synovitis Laboratory Results - last 24 hr 04/29/16 04/30/16 05/02/16 21:45 10:13 00:47 WBC RBC Hgb Hct MCV MCH MCHC RDW Plt Count MPV Neut % (Auto) Lymph % (Auto) [place] % (Auto) Eos % (Auto) Baso % (Auto) Absolute Neuts (auto) Absolute Lymphs (auto) Absolute Monos (auto) Absolute Eos (auto) Absolute Basos (auto) Absolute Nucleated RBC Nucleated RBC % Sodium Potassium Chloride Carbon Dioxide Anion Gap BUN Creatinine Est GFR ( Amer) Est GFR (Non-Af Amer) BUN/Creatinine Ratio Glucose Calcium Phosphorus Magnesium Urine Color Yellow Urine Appearance Clear Urine pH 6.0 Ur Specific [place] 1.006 L Urine Protein Negative Urine Ketones Negative Urine Blood Negative Urine Nitrate Negative Urine Bilirubin Negative Urine Urobilinogen Negative Ur Leukocyte Esterase Negative Urine Glucose Negative Vancomycin Trough Flow Intrp 2-8 Markers TNP Flow Intrp 16+ Markers TNP Blood Type O Positive Antibody Screen Negative Direct Antiglob Test Crossmatch See Detail 05/02/16 05/02/16 05/02/16 06:10 06:10 06:10 WBC 9.4 RBC 1.92 L Hgb 5.6 L* Hct 17 L MCV 88 MCH 29 MCHC 33 RDW 18 H Plt Count 162 MPV 9 Neut % (Auto) 89.1 H Lymph % (Auto) 3.1 L [place] % (Auto) 7.7 Eos % (Auto) 0 Baso % (Auto) 0.1 Absolute Neuts (auto) 8.4 H Absolute Lymphs (auto) 0.3 L Absolute Monos (auto) 0.7 Absolute Eos (auto) 0 Absolute Basos (auto) 0 Absolute Nucleated RBC 0.01 Nucleated RBC % 0.1 Sodium 136 Potassium 4.6 Chloride 105 Carbon Dioxide 25 Anion Gap 6 BUN 8 Creatinine 0.76 Est GFR ( Amer) 150.1 Est GFR (Non-Af Amer) 116.7 BUN/Creatinine Ratio 10.5 Glucose 129 H Calcium 8.5 L Phosphorus 3.2 Magnesium 1.8 L Urine Color Urine Appearance Urine pH Ur Specific [place] Urine Protein Urine Ketones Urine Blood Urine Nitrate Urine Bilirubin Urine Urobilinogen Ur Leukocyte Esterase Urine Glucose Vancomycin Trough Flow Intrp 2-8 Markers Flow Intrp 16+ Markers Blood Type Antibody Screen Direct Antiglob Test Negative Crossmatch 05/02/16 12:30 WBC RBC Hgb Hct MCV MCH MCHC RDW Plt Count MPV Neut % (Auto) Lymph % (Auto) [place] % (Auto) Eos % (Auto) Baso % (Auto) Absolute Neuts (auto) Absolute Lymphs (auto) Absolute Monos (auto) Absolute Eos (auto) Absolute Basos (auto) Absolute Nucleated RBC Nucleated RBC % Sodium Potassium Chloride Carbon Dioxide Anion Gap BUN Creatinine Est GFR ( Amer) Est GFR (Non-Af Amer) BUN/Creatinine Ratio Glucose Calcium Phosphorus Magnesium Urine Color Urine Appearance Urine pH Ur Specific [place] Urine Protein Urine Ketones Urine Blood Urine Nitrate Urine Bilirubin Urine Urobilinogen Ur Leukocyte Esterase Urine Glucose Vancomycin Trough 13.5 Flow Intrp 2-8 Markers Flow Intrp 16+ Markers Blood Type Antibody Screen Direct Antiglob Test Crossmatch Microbiology 04/30/16 13:45 Cerebral Spinal Fluid CSF Gram Stain (Tube 3) - Final 04/30/16 13:45 Cerebral Spinal Fluid CSF Culture - Preliminary No Growth Day 2 05/02/16 00:47 Urine Streptococcus pneumoniae Ag Screen - Final Negative S. pneumo Antigen 04/30/16 05:33 Blood Venous Aerobic Blood Culture - Preliminary No Growth Day 2 04/30/16 05:33 Blood Venous Anaerobic Blood Culture - Preliminary No Growth Day 2 04/30/16 05:33 Blood Venous Blood Culture - Final 04/29/16 21:45 Blood Venous Aerobic Blood Culture - Preliminary No Growth Day 2 04/29/16 21:45 Blood Venous Anaerobic Blood Culture - Preliminary No Growth Day 2 04/29/16 21:45 Blood Venous Blood Culture - Final 04/30/16 19:44 Blood Venous Aerobic Blood Culture - Preliminary No Growth Day 1 04/30/16 19:44 Blood Venous Anaerobic Blood Culture - Preliminary No Growth Day 1 05/01/16 09:00 Nasal Nasal Screen MRSA (PCR)(ARVIN) - Final Mrsa Negative Assessment: 1. Acute hypoxemic respiratory failure 2. Right sided diffuse ground glass opacity on CT; fever, hypoxia; pneumonitis micro diff dx includes atypical bacterial, viral (hMPV, CMV), fungal (PCP, less likely Aspergillus or Debbie), doubt mycobacterial 3. Diffuse large B cell lymphoma, chemotherapy including past Rituxan 4. PCN allergy 5. anemia Plan: 1. Agree with DC vancomycin 05/03 if all cultures negative, 5 days azithro, 7 days cefepime and voriconazole; Bactrim 2 DS tabs PO Q6hrs day 05/13, assuming no other specific etiology found. Then intermodal customer service Bactrim SS daily prophylaxis. Cultures and PCR pending. I am away until 05/09.
[2016-05-02 15:19] LABS: Cytomegalovirus Detection Undetected IU/mL (Undetected)
[2016-05-02 16:59] LABS: Corrected Retic Count 1.6 % (0.5-1.5); Immature Retic Fraction 0.47
[2016-05-02] MEDS ORDERED: NS 0.9% 250 ML* 250 ML ONE (20:16)
[2016-05-02] MEDS: oxyCODONE/Acetamin 5/325 MG* TAB PO PRN (20:31)
[2016-05-02] MEDS ORDERED: NS 0.9% 100 ML* 100 ML ONE (23:44)
[2016-05-02] MEDS ORDERED: NS 0.9% 50 ML* 50 ML ONE (23:44)
[2016-05-03] MEDS: Cefepime(*) 1 GM in NS 0.9% 50 ML* 50 ML IVPB SCH ×2 (01:01→10:28)
[2016-05-03] MEDS: Vancomycin(*) 1,250 MG in NS 0.9% 250 ML* 250 ML IVPB SCH ×3 (04:39→20:57)
[2016-05-03] MEDS: Sulfamethox/Trimethoprim DS 800/160* TAB PO SCH ×3 (05:30→17:17)
[2016-05-03 05:49] LABS: Hematocrit 27 % (42-52); Mean Corpuscular HGB Conc 33 g/dl (31-36); Mean Corpuscular Hemoglobin 29 pg (27-31); Mean Corpuscular Volume 88 fL (80-94); Mean Platelet Volume 9 um3 (7.4-10.4); Red Blood Count 3.07 10^6/ul (4.0-5.4); Red Cell Distribution Width 17 % (10.5-15); White Blood Count 11.6 10^3/ul (3.5-10.8)
[2016-05-03 06:05] LABS: BUN/Creatinine Ratio 10.3 (8-20); Calcium 8.7 mg/dL (8.6-10.3); EGFR African American 145.7 (>60); EGFR Non-African American 113.3 (>60); Magnesium 2.1 mg/dL (1.9-2.7); Potassium 4.9 mmol/L (3.5-5.0)
[2016-05-03] MEDS: Citalopram TAB* 40 MG PO SCH (07:52)
[2016-05-03] MEDS: Prenatal Vitamin TAB PO SCH (07:52)
[2016-05-03] MEDS: predniSONE TAB* 20 MG PO SCH ×2 (07:52→20:56)
[2016-05-03] MEDS: Omeprazole CAP* 20 MG PO SCH (07:52)
[2016-05-03] MEDS: Ondansetron INJ* 2 MG/ML VIAL IV PRN (08:36)
--- NOTE | 2016-05-03 08:42 | PN ---
Progress Note - Progress Note SOAP: Subjective: Mr. Anton was diaphoretic and vomiting when I came in to round this am. reports that it just started. then he needed to move to the toilet for diarrhea. his O2 sat fell into the high 70s/low 80s. he is refusing vapotherm because he "doesn't like it" Objective: Vital Signs Temp Pulse Resp BP Pulse Ox 97.2 F 69 15 80/61 87 05/03/16 08:00 05/03/16 08:00 05/03/16 08:00 05/03/16 08:00 05/03/16 08:00 currently breathing ~40 O2 sat ~80 refusing exam currently on toilet and asked for us to leave Laboratory Results - last 24 hr 04/29/16 04/30/16 05/01/16 21:45 10:13 06:25 WBC RBC RBC (Retic) Hgb Hct HCT (Retic) MCV MCH MCHC RDW Plt Count MPV Neut % (Auto) Lymph % (Auto) [place] % (Auto) Eos % (Auto) Baso % (Auto) Absolute Neuts (auto) Absolute Lymphs (auto) Absolute Monos (auto) Absolute Eos (auto) Absolute Basos (auto) Absolute Nucleated RBC Nucleated RBC % Retic Count, Calc Corrected Retic Count Retic Shift Factor Retic Production Index Immature Retic Fraction Mean Retic Volume Sodium Potassium Chloride Carbon Dioxide Anion Gap BUN Creatinine Est GFR ( Amer) Est GFR (Non-Af Amer) BUN/Creatinine Ratio Glucose Calcium Phosphorus Magnesium Vitamin B12 Vancomycin Trough CMV DNA Detection Undetected Flow Intrp 2-8 Markers Flow Intrp 9-15 Marker TNP Blood Type O Positive Antibody Screen Negative Direct Antiglob Test Crossmatch See Detail 05/02/16 05/02/16 05/02/16 06:10 06:10 12:30 WBC RBC RBC (Retic) Cancelled Hgb Hct HCT (Retic) Cancelled MCV MCH MCHC RDW Plt Count MPV Neut % (Auto) Lymph % (Auto) [place] % (Auto) Eos % (Auto) Baso % (Auto) Absolute Neuts (auto) Absolute Lymphs (auto) Absolute Monos (auto) Absolute Eos (auto) Absolute Basos (auto) Absolute Nucleated RBC Nucleated RBC % Retic Count, Calc Cancelled Corrected Retic Count Cancelled Retic Shift Factor Cancelled Retic Production Index Cancelled Immature Retic Fraction Cancelled Mean Retic Volume Cancelled Sodium Potassium Chloride Carbon Dioxide Anion Gap BUN Creatinine Est GFR ( Amer) Est GFR (Non-Af Amer) BUN/Creatinine Ratio Glucose Calcium Phosphorus Magnesium Vitamin B12 > 1450 H Vancomycin Trough 13.5 CMV DNA Detection Flow Intrp 2-8 Markers Flow Intrp 9-15 Marker Blood Type Antibody Screen Direct Antiglob Test Negative Crossmatch 05/02/16 05/03/16 05/03/16 12:30 05:40 05:40 WBC 11.6 H RBC 3.07 L RBC (Retic) 3.13 L Hgb 9.0 L Hct 27 L HCT (Retic) 28 L MCV 88 MCH 29 MCHC 33 RDW 17 H Plt Count 166 MPV 9 Neut % (Auto) 88.4 H Lymph % (Auto) 2.7 L [place] % (Auto) 8.3 Eos % (Auto) 0 Baso % (Auto) 0.6 Absolute Neuts (auto) 10.3 H Absolute Lymphs (auto) 0.3 L Absolute Monos (auto) 1.0 H Absolute Eos (auto) 0 Absolute Basos (auto) 0.1 Absolute Nucleated RBC 0.02 Nucleated RBC % 0.2 Retic Count, Calc 2.5 H Corrected Retic Count 1.6 H Retic Shift Factor 2.0 Retic Production Index 0.80 Immature Retic Fraction 0.47 Mean Retic Volume 120.9 Sodium 134 Potassium 4.9 Chloride 104 Carbon Dioxide 25 Anion Gap 5 BUN 8 Creatinine 0.78 Est GFR ( Amer) 145.7 Est GFR (Non-Af Amer) 113.3 BUN/Creatinine Ratio 10.3 Glucose 133 H Calcium 8.7 Phosphorus 3.0 Magnesium 2.1 Vitamin B12 Vancomycin Trough CMV DNA Detection Flow Intrp 2-8 Markers Flow Intrp 9-15 Marker Blood Type Antibody Screen Direct Antiglob Test Crossmatch Assessment: 36 yo M w DLBLC, primary refractory, sp chemo admitted with fevers and quickly developed respiratory distress. This am diaphoretic with N/V, and very hypoxic with movement but refusing increased O2. I am concerned that he may end up needing intubation. Plan: -cont current abx, has defervesced -cont ICU level care -if intubated would do broch for biopsies/washings
[2016-05-03] MEDS: Azithromycin IV(*) 500 MG in NS 0.9% 250 ML* 250 ML IVPB SCH (09:03)
[2016-05-03] MEDS: Enoxaparin(*) 40 MG/0.4 ML SYR SUBCUT SCH (09:03)
--- NOTE | 2016-05-03 10:37 | RAD ---
INDICATION: Respiratory failure COMPARISON: Most recent comparison chest x-ray April 29, 2016 TECHNIQUE: Single AP portable view of the chest was obtained. FINDINGS: Image quality is compromised due to the relative inferiority of a portable chest x-ray. Again seen is a right subclavian vein Mediport with the tip terminating at the superior vena cava The heart and mediastinum exhibit normal size and contour. Patchy densities are seen overlying the bilateral lungs, more severely affecting the right lung versus the left. There is persistent elevation of the right hemidiaphragm relative to the previous chest x-ray. The left hemidiaphragm and costophrenic angle is adequately defined. Visualized bones are normal for the patient's age. IMPRESSION: The nonspecific chest x-ray findings identified above could represent right greater than left pulmonary edema, multifocal infection infiltrate, drug toxicity or lymphangitic carcinomatosis. Overall the degree of aeration is worse when compared to April 29, 2016 chest x-ray.
[2016-05-03] MEDS ORDERED: NS 0.9% 1000 ML* 1,000 ML IV ONE ×2 (11:10→13:59)
--- NOTE | 2016-05-03 11:50 | PN ---
Progress Note - Progress Note Note: CRITICAL CARE MEDICINE DATE: 05/03/16 TIME: 930 SUBJECTIVE: Patient seen and examined. Feels ok. Desat this am and now back on Vapotherm 100% 40lpm with rr <teens with 100% sats. PHYSICAL EXAM: Vital Signs: Reviewed. Hr 80s. SBP >100. Neurologic: communcating; nonfocal. HEENT: anicteric, mm dry Cardiovascular: S1 S2, no m. port intact. Respiratory: still with good expansion but fine courseness R >L; perhaps a fine crackle Abdomen: obese, soft, nt Extremities: warm Access: port, midline LABS: Reviewed. IMAGING: Reviewed. MEDICATIONS: Reviewed. ASSESSMENT: 36 M Acute hypoxic respiratory failure - now bl Acute interstitial pneumonitis vs aveolitis Tx for HCAP, vs potential opportunistic Diffuse large B cell lymphoma on RICE tx Anemia of acute disease and post chemotx Hyperglycemia Depression/anxiety PLAN: Neurologic: stable. Cardiovascular: volume ok, but may need to take on more now headed to intubation. Respiratory: HFO2 required. We (myself and family at bedside) discussed the progressive disease and best to move to intubation today so this doesn't get further out of control. Explained needs beyond that for bronch and bx once stable. We did discuss potential low yield of this and even escalatory needs at some point for OLB. They will discuss and help with timing. Explained further concerns to family that this may be more lymphoma related and may need active chemotx and earlier consideration for BMT needs etc and may need transfer for such in the upcoming future. Gastrointestinal: po. ppi - tf post intubation. Renal/Metabolic: stable function. fluid today Infectious Disease: C4, azithro (5 days anticipated); keep vanco for now. Vori, bactrim and ID f/u. Hematology: Anemia - Hb stable. plt ok. onc f/u. Endocrine: on steroids continued. Musculoskeletal: progressive mobility while in bed will be needed Psych/Social: celexa. family at bedside updated and discussing Supportive and preventative care as ordered. SUP: ppi VTE prophylaxis: lovenox Disposition: ICU Code Status: Full D/w Dr. Holloway Critical Care Time: 35min FÁngel Rothman DO
[2016-05-03] MEDS: VORICONAZOLE IVPB SCH (12:13)
[2016-05-03] MEDS: NS 0.9% IVPB SCH (12:13)
[2016-05-03] MEDS ORDERED: LORazepam INJ* 2 MG/ML 1 ML VIAL IV PUSH ONE (13:23)
[2016-05-03] MEDS ORDERED: LORazepam INJ* 2 MG/ML 1 ML VIAL ONE ×2 (13:23→13:27)
[2016-05-03] MEDS ORDERED: Propofol* 100 ML ONE (13:24)
[2016-05-03] MEDS ORDERED: fentaNYL* 50 MCG/ML 5 ML VIAL (250 MCG VIAL) ONE (13:27)
[2016-05-03] MEDS ORDERED: Propofol* 10 MG/ML 20 ML BTL IV PUSH ONE (13:27)
[2016-05-03] MEDS ORDERED: Succinylcholine* 20 MG/ML 10 ML VIAL ONE ×2 (13:27→13:41)
[2016-05-03] MEDS ORDERED: KETAMINE HCL* 50 MG/ML 10 ML VIAL ONE (13:27)
[2016-05-03] MEDS ORDERED: Atropine SYRINGE* 0.1 MG/ML 10 ML SYRINGE (1 MG) ONE (13:45)
[2016-05-03] MEDS ORDERED: Succinylcholine* 20 MG/ML 10 ML VIAL IV ONE (14:01)
[2016-05-03] MEDS: Propofol* 100 ML IV SCH ×5 (14:42→22:21)
--- NOTE | 2016-05-03 14:55 | RAD ---
INDICATION: Pneumonia COMPARISON: Most recent comparison chest x-ray from the same date acquired at 1016 hours TECHNIQUE: Single AP portable view of the chest was obtained on May 03, 2016 at 1411 hours. FINDINGS: Image quality is compromised due to the relative inferiority of a portable chest x-ray. There has been interval worsening of aeration of the right lung with density obscuring the entire right lung. The lesser extent a similar appearance is seen involving the lateral aspect of the mid-level left lung. The endotracheal tube and gastric tube continue to be in appropriate position. IMPRESSION: Worsening aeration of the right lung relative to the chest x-ray acquired approximately 4 hours earlier could be seen with ARDS, pulmonary infection, drug toxicity or pulmonary edema.
[2016-05-03] MEDS: LORazepam INJ* 2 MG/ML 1 ML VIAL IV PUSH PRN (14:58)
[2016-05-03] MEDS ORDERED: fentaNYL PCA* 20 ML PCA SCH (15:00)
--- NOTE | 2016-05-03 15:04 | PN ---
Progress Note - Progress Note Note: CRITICAL CARE MEDICINE PROCEDURE NOTE DATE: 05/03/16 TIME: 1330 SERVICE: Critical Care Medicine LOCATION OF PROCEDURE: ICU PROCEDURE: Endotracheal intubation PROCEDURALIST: Dr. Rothman Consent obtain: Yes Time out held: Not indicated INDICATION: Acute respiratory failure. PROCEDURE: Oxygenation maintained and vitals monitored. Patient in supine position. Pre-medication with ativan 2mg, fentanyl 200mcg (250mcg total), propofol 150mg, then needing ketamine 150mg, succ 150mg. Glidescope #3 inserted with Grade 3 view obtained. First attempt pt nto cooperating and trying to clench jaw. View difficult because of needing more appropriate Mac 4 but given large tongue and limited oral pharyngeal room had to stay with #3. Put with secretions suctions and thought 8.5 ett was resistant at cords but unable to pass. Bag utilized and sedated further with ketamine. Pt still with jaw clentching and desat. Again, ett at cords but not able to pass. Desats and then with succ utilized able to pass 8.0 ett to 25cm past cords. Pt sats dropped and pt with bradycardia into 50s. Asked for atropine, but with bag resuscitation pts Hr rebounded to sinus tachycardia quickly and did not require atropine. Pts father was present throughout the procedure. 8.0 endotracheal tube inserted to 25cm lip. EtCO2 + color change. Portable chest x-ray with ett in place. Worsened airspace disease due to derecruited volumes as well. Patient otherwise tolerated and already coughing and resisting ett again despite high level sedation. Father updated after as well on plans of care. Utilize sedation today and see if we can recruit with APRV as needing 100%, prior to any bronch with bx. FÁngel Rothman,
[2016-05-03 15:08] LABS: Immunoglobulin A 314 mg/dL (61 - 356); Immunoglobulin G 591 mg/dL (767 - 1590); Immunoglobulin M 39 mg/dL (37 - 286)
[2016-05-03] MEDS: Lansoprazole SOLUTAB* 30 MG G TUBE SCH (15:32)
[2016-05-03] MEDS: Chlorhexidine MOUTHWASH 0.12%* 15 ML UDC TOPICAL SCH ×2 (15:32→17:18)
[2016-05-03] MEDS ORDERED: NS 0.9% 250 ML* 250 ML ONE (19:35)
[2016-05-03] MEDS: fentaNYL PCA* 20 ML PCA SCH (20:00)
[2016-05-03] MEDS ORDERED: Norepinephrine 16MCG/ML IVPRE* 4,000 MCG/250 ML BAG IV ONE (21:46)
[2016-05-03] MEDS ORDERED: NS 0.9% 50 ML* 50 ML ONE (23:21)
[2016-05-03] MEDS ORDERED: NS 0.9% 100 ML* 100 ML ONE (23:21)
[2016-05-04] MEDS: Chlorhexidine MOUTHWASH 0.12%* 15 ML UDC TOPICAL SCH ×7 (00:01→21:39)
[2016-05-04] MEDS: VORICONAZOLE IVPB SCH ×2 (00:01→11:29)
[2016-05-04] MEDS: NS 0.9% IVPB SCH ×2 (00:01→11:29)
[2016-05-04] MEDS: Cefepime(*) 1 GM in NS 0.9% 50 ML* 50 ML IVPB SCH ×3 (00:15→23:28)
[2016-05-04] MEDS: Sulfamethox/Trimethoprim DS 800/160* TAB PO SCH ×4 (00:29→18:04)
[2016-05-04] MEDS ORDERED: Norepinephrine 16MCG/ML IVPRE* 4,000 MCG/250 ML BAG IV SCH (01:00)
[2016-05-04] MEDS: Propofol* 100 ML IV SCH ×12 (01:11→23:28)
[2016-05-04] MEDS: fentaNYL PCA* 20 ML PCA SCH ×2 (01:58→20:18)
[2016-05-04] MEDS ORDERED: NS 0.9% 250 ML* 250 ML ONE (03:58)
[2016-05-04] MEDS: Vancomycin(*) 1,250 MG in NS 0.9% 250 ML* 250 ML IVPB SCH ×2 (04:37→13:00)
[2016-05-04 06:26] LABS: Hematocrit 27 % (42-52); Hemoglobin 8.9 g/dl (14.0-18.0); Mean Corpuscular HGB Conc 33 g/dl (31-36); Mean Corpuscular Hemoglobin 29 pg (27-31); Mean Corpuscular Volume 90 fL (80-94); Mean Platelet Volume 9 um3 (7.4-10.4); Red Blood Count 3.05 10^6/ul (4.0-5.4); Red Cell Distribution Width 18 % (10.5-15); White Blood Count 13.6 10^3/ul (3.5-10.8)
[2016-05-04 06:40] LABS: BUN/Creatinine Ratio 8.9 (8-20); Calcium 9.1 mg/dL (8.6-10.3); EGFR Non-African American 50.5 (>60); Magnesium 2.1 mg/dL (1.9-2.7); Phosphorus 4.8 mg/dL (2.5-5.0); Potassium 4.6 mmol/L (3.5-5.0)
[2016-05-04] MEDS: Lansoprazole SOLUTAB* 30 MG G TUBE SCH (08:57)
[2016-05-04] MEDS: Citalopram TAB* 40 MG PO SCH (08:57)
[2016-05-04] MEDS: Azithromycin IV(*) 500 MG in NS 0.9% 250 ML* 250 ML IVPB SCH (08:58)
[2016-05-04] MEDS: predniSONE TAB* 20 MG PO SCH ×2 (10:18→21:39)
[2016-05-04] MEDS: Enoxaparin(*) 40 MG/0.4 ML SYR SUBCUT SCH (10:18)
[2016-05-04] MEDS: Prenatal Vitamin TAB PO SCH (10:27)
--- NOTE | 2016-05-04 11:08 | RAD ---
INDICATION: Respiratory failure COMPARISON: Most recent comparison chest x-rays dated May 03, 2016 TECHNIQUE: Single AP portable view of the chest was obtained. FINDINGS: Image quality is compromised due to the relative inferiority of a portable chest x-ray. The patient's lines and tubes are in appropriate position and not changed significantly from the previous chest x-ray. The heart and mediastinum exhibit normal size and contour. There is improved aeration of the bilateral lungs particularly the right lung when compared to the most recent chest x-ray. Costophrenic angle margin blunting persists at the right lung base indicating likely small pleural effusion. Visualized bones are normal for the patient's age. IMPRESSION: Improved aeration, particularly of the right lung, relative to the most recent chest x-ray.
--- NOTE | 2016-05-04 11:19 | PN ---
Progress Note - Progress Note Note: CRITICAL CARE MEDICINE DATE: 05/04/16 TIME: 930 SUBJECTIVE: Patient seen and examined. Family at bedside. PHYSICAL EXAM: Vital Signs: Reviewed. Hr 90s. SBP >100. RR down. FiO2 to 60% Neurologic: sedated but moves around. coughing on less sedation. HEENT: perrl, anicteric, mmm Cardiovascular: S1 S2, no m. port intact. Respiratory: still with good expansion but coarseness and sqwalk still on Right and left course. Abdomen: obese, soft, nt Extremities: warm, dep edema Access: port, midline LABS: Reviewed. IMAGING: Reviewed. MEDICATIONS: Reviewed. 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 no full holiday today but dec slowly and see if we can lighten his rass. Would look to drop fent gtt tomorrow am after these initial needs and utilize propofol which alone he can awaken through. But needs more time and would be at risk for self extubation. Cardiovascular: Perfusing fine. volume up given abundance of fluid needs. Limit excess. But not needing diuretics at this time. Respiratory: Markedly better post APRV. Still with microscopic disease but much more recruited alveoli. Dec Fio2 today although will remain with A-a gradient, but may be much better. Then look to stretch and allow his continued spont breaths, but also need to lower Phigh to allow for safer bronch by tomorrow. Will have pulm f/u for bronch with bx Gastrointestinal: tf. ppi. Renal/Metabolic: JESSICA post low flow. Limit fluid as able and allow renal recovery without excess work. Infectious Disease: C4, azithro (5 days anticipated); going to dc vanco given his renal insult now and low potential for utility. Vori, bactrim and ID f/u remain. Hematology: Anemia - Hb stable. plt ok. onc f/u. Endocrine: on steroids continued. glu ok Musculoskeletal: progressive mobility Psych/Social: celexa. family at bedside updated; reviewed cxr and ct with them. Supportive and preventative care as ordered. SUP: ppi VTE prophylaxis: lovenox Disposition: ICU Code Status: Full Critical Care Time: 40min Fatoumata Rothman DO
[2016-05-04] MEDS: LORazepam INJ* 2 MG/ML 1 ML VIAL IV PUSH PRN (11:29)
[2016-05-04] MEDS: HYDROmorphone INJ* 1 MG/ML CARPUJECT SYRINGE IV SLOW PU PRN (11:29)
[2016-05-04] MEDS ORDERED: Vancomycin Trough Check NOTE FOLLOW UP ONE (12:30)
[2016-05-04] MEDS ORDERED: Propofol* 100 ML ONE (18:51)
[2016-05-05] MEDS: Sulfamethox/Trimethoprim DS 800/160* TAB PO SCH ×5 (00:20→23:44)
[2016-05-05] MEDS: NS 0.9% IVPB SCH ×3 (00:20→23:44)
[2016-05-05] MEDS: VORICONAZOLE IVPB SCH ×3 (00:20→23:44)
[2016-05-05] MEDS: Propofol* 100 ML IV SCH ×10 (01:28→22:21)
[2016-05-05] MEDS: Chlorhexidine MOUTHWASH 0.12%* 15 ML UDC TOPICAL SCH ×6 (03:29→21:26)
[2016-05-05] MEDS ORDERED: Vancomycin Random Level* NOTE FOLLOW UP ONE (06:00)
[2016-05-05 06:32] LABS: Hematocrit 18 % (42-52); Mean Corpuscular HGB Conc 33 g/dl (31-36); Mean Corpuscular Hemoglobin 29 pg (27-31); Mean Corpuscular Volume 89 fL (80-94); Mean Platelet Volume 10 um3 (7.4-10.4); Red Blood Count 2.06 10^6/ul (4.0-5.4); Red Cell Distribution Width 18 % (10.5-15); White Blood Count 12.3 10^3/ul (3.5-10.8)
[2016-05-05 06:33] LABS: Add Diff/Slide Review? Slide Review Added; Comments Flag Yes
[2016-05-05 06:34] LABS: Albumin 2.9 g/dL (3.2-5.2); BUN/Creatinine Ratio 12.2 (8-20); Calcium 9.2 mg/dL (8.6-10.3); EGFR African American 86.1 (>60); Globulin 3.6 g/dL (2-4); Hemoglobin 5.9 g/dl (14.0-18.0); Magnesium 2.1 mg/dL (1.9-2.7); Phosphorus 3.6 mg/dL (2.5-5.0); Total Bilirubin 0.1 mg/dL (0.2-1.0); Total Protein 6.5 g/dL (6.4-8.9)
[2016-05-05 06:43] LABS: Potassium 4.6 mmol/L (3.5-5.0)
[2016-05-05] MEDS: Enoxaparin(*) 40 MG/0.4 ML SYR SUBCUT SCH (09:16)
[2016-05-05] MEDS: predniSONE TAB* 20 MG PO SCH ×2 (09:16→21:26)
[2016-05-05] MEDS: Lansoprazole SOLUTAB* 30 MG G TUBE SCH (09:16)
[2016-05-05] MEDS: Citalopram TAB* 40 MG PO SCH (09:16)
[2016-05-05] MEDS: Prenatal Vitamin TAB PO SCH (09:16)
--- NOTE | 2016-05-05 09:51 | PN ---
Progress Note - Progress Note SOAP: Subjective: []On Ventilator, pressure support Some agitation. Family at bedside Active Medications Generic Name Dose Route Start Last Admin Trade Name Freq PRN Reason Stop Dose Admin Acetaminophen 650 mg 04/30/16 00:32 05/01/16 21:22 Tylenol Tab* PO 650 mg Q4H PRN Administration FEVER/PAIN Al Hydrox/Mg Hydrox/Simethicone 30 ml 04/30/16 00:32 Maalox Plus* PO Q6H PRN INDIGESTION Alprazolam 0.5 mg 04/30/16 00:39 05/01/16 21:07 Xanax Tab* PO 0.5 mg Q6H PRN Administration ANXIETY Chlorhexidine Gluconate 15 ml 05/03/16 15:00 05/05/16 09:16 Peridex Mouth Wash 0.12%* TOPICAL 15 ml Q4HR KATHIE Administration Citalopram Hydrobromide 40 mg 04/30/16 09:00 05/05/16 09:16 Celexa Tab* PO 40 mg DAILY KATHIE Administration Docusate Sodium 100 mg 04/30/16 00:32 Colace Cap* PO BID PRN CONSTIPATION Enoxaparin Sodium 40 mg 05/02/16 10:00 05/05/16 09:16 Lovenox(*) SUBCUT 40 mg Q24H KATHIE Administration Heparin Sodium (Porcine) 1 - 3 ml 05/01/16 13:00 05/05/16 05:35 Heparin Flush Picc/Ml/Cvc(*) FLUSH Not Given 0600,1800 [facility] Protocol Hydromorphone HCl 1 mg 04/30/16 00:41 05/04/16 11:29 Dilaudid Iv* IV SLOW PU 1 mg Q4H PRN Administration PAIN Cefepime HCl 1 gm/ Sodium 50 mls @ 100 mls/hr 04/30/16 12:00 05/04/16 23:28 Chloride IVPB 100 mls/hr Q12H KATHIE Administration Azithromycin 500 mg/ Sodium 250 mls @ 250 mls/hr 05/01/16 10:30 05/04/16 08: 58 Chloride IVPB 05/05/16 11:29 250 mls/hr Q24H KATHIE Administration Voriconazole 200 mg/ Sodium 120 mls @ 120 mls/hr 05/02/16 12:00 05/05/16 00: 20 Chloride IVPB 120 mls/hr Q12H KATHIE Administration Fentanyl Citrate 20 mls @ 3 mls/hr 05/03/16 15:46 05/04/16 20:18 Fentanyl Psychological Assistant* GAMBRELER 3 mls/hr .change Q24H KATHIE Administration 150 MCG/HR Propofol 100 mls @ 51.504 mls/hr 05/03/16 16:00 05/05/16 07:35 Diprivan* IV 44.9 mls/hr .(Initial Rate) KATHIE Administration Protocol 80 MCG/KG/MIN Dexmedetomidine HCl 50 mls @ 5.365 mls/hr 05/03/16 16:00 Precedex* IVPB .(Initial Rate) KATHIE 0.2 MCG/KG/HR Norepinephrine Bitartrate 4,000 mcg in 250 mls @ 18.75 mls/hr 05/04/16 01:00 Levophed 16 Mcg/Ml Premix Bag* IV .INITIAL RATE KATHIE Protocol 5 MCG/MIN Lansoprazole 30 mg 05/03/16 15:00 05/05/16 09:16 Prevacid Solutab* G TUBE 30 mg DAILY KATHIE Administration Lorazepam 0.5 mg 04/30/16 00:40 05/01/16 06:29 Ativan Tab(*) PO 0.5 mg Q6H PRN Administration NAUSEA Lorazepam 1 mg 05/03/16 14:02 05/04/16 11:29 Ativan Inj* IV PUSH 1 mg Q3H PRN Administration ANXIETY Magnesium Hydroxide 30 ml 04/30/16 00:32 Milk Of Magnesia Liq* PO Q4H PRN CONSTIPATION Multivitamins 1 tab 04/30/16 09:00 05/05/16 09:16 Vitamin Tab* PO 1 tab DAILY KATHIE Administration Ondansetron HCl 4 mg 04/30/16 00:32 05/03/16 08:36 Zofran Inj* IV 4 mg Q4H PRN Administration NAUSEA/VOMITING Oxycodone/Acetaminophen 1 tab 04/30/16 00:32 05/02/16 20:31 Percocet 5/325 Tab* PO 1 tab Q4H PRN Administration Pain Prednisone 40 mg 05/01/16 21:00 05/05/16 09:16 Deltasone Tab* PO 40 mg BID KATHIE Administration Senna 1 tab 04/30/16 00:32 Senokot Tab* PO BID PRN CONSTIPATION Trimethoprim/Sulfamethoxazole 2 tab 05/01/16 18:00 05/05/16 05:35 Bactrim Ds 800/160 Tab* PO 2 tab Q6HR KATHIE Administration Objective: [] Vital Signs Temp Pulse Resp BP Pulse Ox 99.3 F 104 25 107/52 93 05/05/16 09:00 05/05/16 09:00 05/05/16 09:00 05/05/16 09:00 05/05/16 08:44 Temp stable a 99-100, BP stable, on Vent FiO2 40%, P high 26 HEENT - Edema, Vent Lungs, no wheezing RRR S1S2 Has bowl sounds, NT, obease Ext +2 edema, warm Neuro- sedated, responding to father's vioce Assessment: []36 year with primary refractory lymphoma, pnemonia status post RICE chemotherapy. DDx is broad and includes PCP, fungal infection, atypical bacteria, non infection pneumonitis, lymphoma infiltration is not likely but possible. 1. Pulm. Improved on Vent but still with significant support, case discussed with Dr. Hodge 2. ID. Temp stable, Vano on hold second to renal function. Bronchoscope pending. 3. FEN. renal function improving 4. Anemia. Tx today, follow. Retic suppressed. 5. GI. Tube feeds 6. Family with him through day and night, will try and get them meal trays. Plan: []
[2016-05-05] MEDS: Azithromycin IV(*) 500 MG in NS 0.9% 250 ML* 250 ML IVPB SCH (11:28)
[2016-05-05] MEDS: Dexmedetomidine* 50 ML IVPB SCH (12:25)
[2016-05-05] MEDS: Cefepime(*) 1 GM in NS 0.9% 50 ML* 50 ML IVPB SCH ×2 (12:58→23:44)
[2016-05-05] MEDS: fentaNYL PCA* 20 ML PCA SCH ×2 (13:28→19:35)
--- NOTE | 2016-05-05 16:36 | PN ---
Progress Note - Progress Note Note: Pulm consult f/u note 05/05/16. Pt seen and examined at bedside. Pt was intubated over weekend. He is on APRV. No acute events o/n Active Medications Generic Name Dose Route Start Last Admin Trade Name Freq PRN Reason Stop Dose Admin Acetaminophen 650 mg 04/30/16 00:32 05/01/16 21:22 Tylenol Tab* PO 650 mg Q4H PRN Administration FEVER/PAIN Al Hydrox/Mg Hydrox/Simethicone 30 ml 04/30/16 00:32 Maalox Plus* PO Q6H PRN INDIGESTION Alprazolam 0.5 mg 04/30/16 00:39 05/01/16 21:07 Xanax Tab* PO 0.5 mg Q6H PRN Administration ANXIETY Chlorhexidine Gluconate 15 ml 05/03/16 15:00 05/05/16 14:21 Peridex Mouth Wash 0.12%* TOPICAL 15 ml Q4HR KATHIE Administration Citalopram Hydrobromide 40 mg 04/30/16 09:00 05/05/16 09:16 Celexa Tab* PO 40 mg DAILY KATHIE Administration Docusate Sodium 100 mg 04/30/16 00:32 Colace Cap* PO BID PRN CONSTIPATION Enoxaparin Sodium 40 mg 05/02/16 10:00 05/05/16 09:16 Lovenox(*) SUBCUT 40 mg Q24H KATHIE Administration Heparin Sodium (Porcine) 1 - 3 ml 05/01/16 13:00 05/05/16 16:05 Heparin Flush Picc/Ml/Cvc(*) FLUSH Not Given 0600,1800 [facility] Protocol Hydromorphone HCl 1 mg 04/30/16 00:41 05/04/16 11:29 Dilaudid Iv* IV SLOW PU 1 mg Q4H PRN Administration PAIN Cefepime HCl 1 gm/ Sodium 50 mls @ 100 mls/hr 04/30/16 12:00 05/05/16 12:58 Chloride IVPB 100 mls/hr Q12H KATHIE Administration Voriconazole 200 mg/ Sodium 120 mls @ 120 mls/hr 05/02/16 12:00 05/05/16 14: 14 Chloride IVPB 120 mls/hr Q12H KATHIE Administration Fentanyl Citrate 20 mls @ 3 mls/hr 05/03/16 15:46 05/05/16 13:28 Fentanyl Seo Executive* [employer] 3 mls/hr .change Q24H KATHIE Administration 150 MCG/HR Propofol 100 mls @ 51.504 mls/hr 05/03/16 16:00 05/05/16 15:59 Diprivan* IV 35.3 mls/hr .(Initial Rate) KATHIE Administration Protocol 80 MCG/KG/MIN Dexmedetomidine HCl 50 mls @ 5.365 mls/hr 05/03/16 16:00 05/05/16 12:25 Precedex* IVPB 5.365 mls/hr .(Initial Rate) KATHIE Administration 0.2 MCG/KG/HR Norepinephrine Bitartrate 4,000 mcg in 250 mls @ 18.75 mls/hr 05/04/16 01:00 Levophed 16 Mcg/Ml Premix Bag* IV .INITIAL RATE KATHIE Protocol 5 MCG/MIN Lansoprazole 30 mg 05/03/16 15:00 05/05/16 09:16 Prevacid Solutab* G TUBE 30 mg DAILY KATHIE Administration Lorazepam 0.5 mg 04/30/16 00:40 05/01/16 06:29 Ativan Tab(*) PO 0.5 mg Q6H PRN Administration NAUSEA Lorazepam 1 mg 05/03/16 14:02 05/04/16 11:29 Ativan Inj* IV PUSH 1 mg Q3H PRN Administration ANXIETY Magnesium Hydroxide 30 ml 04/30/16 00:32 Milk Of Magnesia Liq* PO Q4H PRN CONSTIPATION Multivitamins 1 tab 04/30/16 09:00 05/05/16 09:16 Vitamin Tab* PO 1 tab DAILY KATHIE Administration Ondansetron HCl 4 mg 04/30/16 00:32 05/03/16 08:36 Zofran Inj* IV 4 mg Q4H PRN Administration NAUSEA/VOMITING Oxycodone/Acetaminophen 1 tab 04/30/16 00:32 05/02/16 20:31 Percocet 5/325 Tab* PO 1 tab Q4H PRN Administration Pain Prednisone 40 mg 05/01/16 21:00 05/05/16 09:16 Deltasone Tab* PO 40 mg BID KATHIE Administration Senna 1 tab 04/30/16 00:32 Senokot Tab* PO BID PRN CONSTIPATION Trimethoprim/Sulfamethoxazole 2 tab 05/01/16 18:00 05/05/16 12:58 Bactrim Ds 800/160 Tab* PO 2 tab Q6HR KATHIE Administration Vital Signs Temp Pulse Resp BP Pulse Ox 99.2 F 66 20 101/46 95 05/05/16 16:00 05/05/16 16:00 05/05/16 16:00 05/05/16 16:00 05/05/16 16:14 Temp stable a 99-100, BP stable, on Vent FiO2 40%, P high 26 HEENT - Edema, Vent Lungs, no wheezing RRR S1S2 Has bowl sounds, NT, obease Ext +2 edema, warm Neuro- sedated, responding to father's vioce Laboratory Results - last 24 hr 05/05/16 05/05/16 05/05/16 06:05 06:05 06:05 WBC 12.3 H RBC 2.06 L Hgb 5.9 L* Hct 18 L MCV 89 MCH 29 MCHC 33 RDW 18 H Plt Count 233 MPV 10 Neut % (Auto) 79.8 Lymph % (Auto) 4.5 L Long % (Auto) 15.5 H Eos % (Auto) 0 Baso % (Auto) 0.2 Absolute Neuts (auto) 9.8 H Absolute Lymphs (auto) 0.6 L Absolute Monos (auto) 1.9 H Absolute Eos (auto) 0 Absolute Basos (auto) 0 Absolute Nucleated RBC 0.03 Nucleated RBC % 0.3 Sodium 133 Potassium 4.6 Chloride 101 Carbon Dioxide 24 Anion Gap 8 BUN 15 Creatinine 1.23 H Est GFR ( Amer) 86.1 Est GFR (Non-Af Amer) 67.0 BUN/Creatinine Ratio 12.2 Glucose 82 Calcium 9.2 Phosphorus 3.6 Magnesium 2.1 Total Bilirubin 0.10 L AST 17 ALT 6 L Alkaline Phosphatase 78 Total Protein 6.5 Albumin 2.9 L Globulin 3.6 Albumin/Globulin Ratio 0.8 L Blood Type O Positive Antibody Screen Negative Crossmatch See Detail I/R: 36 y o male with primary refractory lymphoma, pnemonia status post RICE chemotherapy with worsening SOB and progressively worsening lung infiltrates jalil on right lung. DDx is broad and includes PCP, fungal infection, atypical bacteria, non infection pneumonitis, lymphoma infiltration is not likely but possible. Pt was intubated for worsening hypoxic resp failure Acceptable resp mechanics on APRV S/p bronchoscopy today- thin but copius secretions noted Sample sent for cytology to r/o PCP Sample also sent fot fungal, viral, bacterial cx Lung biopsy was not performed as pt will be high risk for PTX Received transfusion for low H&H
--- NOTE | 2016-05-05 17:04 | PN ---
Critical Care Services: Remains on ventilator. Bronch today with BAL for pneumocystis, etc. Last CXR shows clearing in both lungs!! Vital Signs: Temp Pulse Resp BP SpO2 FiO2 99.2 F 66 20 101/46 95 50 Physical Exam: Gen:Unresponsive (on propofol and Precedex) Lungs:No crackles Extremities:No cyanosis Fluid Balance (Past 24 Hours): 05/05/16 06:59 Intake Total 5337 Output Total 1450 Balance +3887 Weight 246 lb Intake: IV Fluids 530 NS (0.9%) NS (0.9%) 20 meq KCL NS KVO 530 NS KVO w/ ABX IVPB 679 ABX 379 ABX - AZITHROMYCIN 250 ABX - CEFEPIME 50 ABX - VANCOMYCIN NS (0.9%) NS KVO NS KVO w/ ABX Medicated IV 1167 CC - Norepinephrine/ Levophed CC - Propofol/Diprivan 1167 IV Narcotic Infusion 2601 Fentanyl 2601 Oral Tube Feeding 240 Tube Feeding Flush Amount 120 Packed Cells NG Tube Irrigate Amount Output: NG Tube Drainage Amount 200 G Tube Urine Dominguez 875 Tube Feeding Residual 375 Amount Wasted Other: Date of Last Bowel Movement Estimated Stool Amount Note: Markedly positive fluid balance Labs: Laboratory Results - last 24 hr 05/05/16 05/05/16 05/05/16 06:05 06:05 06:05 WBC 12.3 Hgb 5.9 Hct 18 Plt Count 233 Sodium 133 Potassium 4.6 Chloride 101 Carbon Dioxide 24 Anion Gap 8 BUN 15 Creatinine 1.23 Glucose 82 Calcium 9.2 Phosphorus 3.6 Magnesium 2.1 Total Bilirubin 0.10 AST 17 ALT 6 Alkaline Phosphatase 78 Total Protein 6.5 Albumin 2.9 Studies: CXR: as described Impression: Marked improvement in CXR over 24 hrs indicates that patient had developed significant atelectasis in the right lung, which has improved on APRV. Plan: Remove APRV and move towards weaning and extubation. Await results of BAL. Will follow serial CXRs. Critical Care Time: 45 minutes
[2016-05-05] MEDS ORDERED: Furosemide IV* 10 MG/ML 10 ML VIAL (100 MG) IV ONE (17:07)
[2016-05-05] MEDS ORDERED: Furosemide IV* 10 MG/ML VIAL (40 MG) IV ONE (17:07)
[2016-05-05] MEDS ORDERED: Furosemide IV* 10 MG/ML VIAL (40 MG) ONE (17:10)
[2016-05-05] MEDS: LORazepam INJ* 2 MG/ML 1 ML VIAL IV PUSH PRN (23:56)
[2016-05-06] MEDS: Propofol* 100 ML IV SCH ×11 (00:24→23:58)
[2016-05-06] MEDS: fentaNYL PCA* 20 ML PCA SCH ×3 (01:23→13:12)
--- NOTE | 2016-05-06 01:32 | PRO ---
BRONCHOSCOPY REPORT: DATE OF PROCEDURE: 05/05/16 - ROOM # ICU-12 PROCEDURE PERFORMED: Bronchoscopy with bronchoalveolar lavage from right upper lobe. INDICATION: Evaluation of lung infiltrates. PREPROCEDURAL DIAGNOSIS: Diffuse right lung infiltrates. ANESTHESIA: The patient on propofol and fentanyl drip, propofol bolus given prior to the procedure. Local anesthesia with 1% lidocaine. PROCEDURE IN DETAIL: Informed consent was obtained from the patient's mother who is the healthcare proxy after all the risks and benefits of the procedure were thoroughly explained. The patient is currently intubated and could not consent to the procedure. The patient with large cell lymphoma, received chemoradiation with worsening shortness of breath, found to have worsening right diffuse ground-glass opacities and patchy opacities on the left lung. Appropriate time-out was agreed on by the attending staff prior to the procedure. FiO2 was increased to 100% prior to the procedure. A flexible Olympus bronchoscope was then inserted through the ET tube. Thin serosanguineous secretions were noted in the ET tube and at the level of velma , few mucus plugs were also noted. Secretions were suctioned out. ET tube positioning was confirmed to be 1.5 cm above the level of velma. ET tube was then advanced into the right bronchial tree, which was then inspected. There was evidence of mucosal erythema and blood clots at the level of right upper mainstem bronchus. Secretions were suctioned out. No endobronchial lesions were noted beyond. The patient had thin white secretions which were suctioned out. The left bronchial tree appeared to be patent with minimal secretions and no endobronchial lesions. Bronchoalveolar lavage was obtained from the right upper lobe and middle lobe. The patient tolerated the procedure well. Specimen was sent to the lab for cytological and microbiological examination. [id number]/CPS #: [id number] [facility]
[2016-05-06] MEDS: Chlorhexidine MOUTHWASH 0.12%* 15 ML UDC TOPICAL SCH ×6 (02:07→22:08)
[2016-05-06] MEDS: Sulfamethox/Trimethoprim DS 800/160* TAB PO SCH ×3 (05:38→17:19)
[2016-05-06 05:44] LABS: Hematocrit 27 % (42-52); Hemoglobin 9.1 g/dl (14.0-18.0); Mean Corpuscular HGB Conc 34 g/dl (31-36); Mean Corpuscular Hemoglobin 30 pg (27-31); Mean Corpuscular Volume 88 fL (80-94); Mean Platelet Volume 10 um3 (7.4-10.4); Red Blood Count 3.05 10^6/ul (4.0-5.4); Red Cell Distribution Width 17 % (10.5-15); White Blood Count 12.7 10^3/ul (3.5-10.8)
[2016-05-06 06:06] LABS: BUN/Creatinine Ratio 12.9 (8-20); Blood Urea Nitrogen 13 mg/dL (6-24); CO2 Carbon Dioxide 27 mmol/L (22-32); Chloride 98 mmol/L (101-111); EGFR African American 108.1 (>60); EGFR Non-African American 84.1 (>60); Glucose 96 mg/dL (70-100); Sodium 134 mmol/L (133-145)
[2016-05-06] MEDS: LORazepam INJ* 2 MG/ML 1 ML VIAL IV PUSH PRN ×4 (06:09→23:40)
[2016-05-06] MEDS: Citalopram TAB* 40 MG PO SCH (07:55)
[2016-05-06] MEDS: Prenatal Vitamin TAB PO SCH (07:55)
[2016-05-06] MEDS: Lansoprazole SOLUTAB* 30 MG G TUBE SCH (07:56)
[2016-05-06] MEDS: predniSONE TAB* 20 MG PO SCH ×2 (07:56→20:46)
--- NOTE | 2016-05-06 07:56 | RAD ---
HISTORY: Pneumonia COMPARISONS: May 04, 2016 at 7:[address] dated May 01, 2016 VIEWS:1: Single frontal portable view of the chest at 6:04 AM FINDINGS: LINES AND TUBES: An endotracheal tube is noted with tip overlying the trachea at the level clavicles. A gastric tube is noted. The tip is below the [id number] the current examination but is below the diaphragm. A right-sided chest port is noted from a subclavian approach with the tip overlying the superior vena cava. CARDIOMEDIASTINAL SILHOUETTE: Again noted is prominence of the right paratracheal stripe consistent with history of lymphadenopathy. PLEURA: The costophrenic angles are sharp. No pleural abnormalities are noted. LUNG PARENCHYMA: There is a diffuse reticular pattern of opacification throughout both lungs, somewhat progressed from May 04, 2016 ABDOMEN: The upper abdomen is clear. There is no subphrenic gas. BONES AND SOFT TISSUES: No bone or soft tissue abnormalities are noted. IMPRESSION: 1. LINES AND TUBES ABOVE. 2. DIFFUSE INTERSTITIAL OPACIFICATION, PROGRESSED FROM MAY 04, 2016. THE DIFFERENTIAL INCLUDES PULMONARY INTERSTITIAL EDEMA VERSUS PNEUMONITIS
[2016-05-06] MEDS: Enoxaparin(*) 40 MG/0.4 ML SYR SUBCUT SCH (10:52)
[2016-05-06] MEDS: Dexmedetomidine* 50 ML IVPB SCH (11:24)
[2016-05-06 11:55] LABS: FHMPV Source NASOPHARYNGIAL; Human Metapneumovirus (hMPV) NOT DETECTED
[2016-05-06] MEDS: Cefepime(*) 1 GM in NS 0.9% 50 ML* 50 ML IVPB SCH ×2 (12:05→23:24)
[2016-05-06] MEDS: VORICONAZOLE IVPB SCH (12:43)
[2016-05-06] MEDS: NS 0.9% IVPB SCH (12:43)
[2016-05-06] MEDS: HYDROmorphone INJ* 1 MG/ML CARPUJECT SYRINGE IV SLOW PU PRN (13:44)
[2016-05-06] MEDS ORDERED: Furosemide IV* 10 MG/ML 10 ML VIAL (100 MG) IV ONE (15:49)
[2016-05-06] MEDS: fentaNYL* 50 MCG/ML 2 ML VIAL (100 MCG VIAL) IV PRN (16:08)
--- NOTE | 2016-05-06 17:37 | PN ---
Critical Care Services: Continues on ventilator. Attempts to remove APRV have not been successful. Continues to receive IV lasix to correct positive fluid balance. Bronchoscopic BAL from yesterday shows nondiagnostic gram stain - culture pending. Vital Signs: Temp Pulse Resp BP SpO2 FiO2 99.4 F 102 15 126/75 95 80 Physical Exam: Gen:Unresponsive - on multiple sedatives. Lungs:no wheezing or crackles. Abdomen: Not distended Extremities:2+edema. No cyanosis Fluid Balance (Past 24 Hours): 05/06/16 06:59 Intake Total 3462.9 Output Total 6450 Balance -2987 Weight 239 lb Intake: IV Fluids 720 NS (0.9%) NS KVO 720 NS KVO w/ ABX IVPB 605 ABX 305 ABX - AZITHROMYCIN ABX - CEFEPIME ABX - VANCOMYCIN NS (0.9%) NS KVO 300 NS KVO w/ ABX Medicated IV 1135.9 CC - Dexmedetomidine/ 23.9 Precedex CC - Norepinephrine/ Levophed CC - Propofol/Diprivan 1112 IV Narcotic Infusion 12 Fentanyl 12 Oral Tube Feeding Tube Feeding Flush Amount 250 Packed Cells 500 NG Tube Irrigate Amount 240 Output: NG Tube Drainage Amount 1100 G Tube 500 Urine Dominguez 4850 Tube Feeding Residual Amount Wasted Other: Date of Last Bowel Movement Labs: 05/06/16 05/06/16 05:30 05:30 WBC 12.7 H Hgb 9.1 Plt Count 193 Sodium 134 Potassium TNP Chloride 98 L Carbon Dioxide 27 BUN 13 Creatinine 1.01 Glucose 96 Calcium 9.0 NOTE: Hemoglobin (Hb) drawn after 2 units packed RBCs. Studies: CXR shows patchy infiltrates both lungs, but is underpenetrated (which exagerrates the extent of the process). Nutrition: Tube feedings Impression: Stable but still ventilator-dependent. No pathogen has been identified, despite multiple cultures, including bronchoscopic BAL. Plan: 1. Continue diuresis. 2. Consider removing some of the empiric antibiotic coverage. 3. Continue attempts to wean ventilatory assistance. Critical Care Time: 35 minutes
[2016-05-07] MEDS: NS 0.9% IVPB SCH ×3 (00:16→23:52)
[2016-05-07] MEDS: VORICONAZOLE IVPB SCH ×3 (00:16→23:52)
[2016-05-07] MEDS: fentaNYL PCA* 20 ML PCA SCH ×3 (00:36→18:29)
[2016-05-07] MEDS: Sulfamethox/Trimethoprim DS 800/160* TAB PO SCH ×2 (00:43→06:19)
[2016-05-07] MEDS: Dexmedetomidine* 50 ML IVPB SCH ×3 (01:56→21:50)
[2016-05-07] MEDS: Chlorhexidine MOUTHWASH 0.12%* 15 ML UDC TOPICAL SCH ×6 (02:03→21:50)
[2016-05-07] MEDS: Propofol* 100 ML IV SCH ×10 (02:07→23:52)
[2016-05-07] MEDS: fentaNYL* 50 MCG/ML 2 ML VIAL (100 MCG VIAL) IV PRN ×4 (04:34→12:45)
[2016-05-07 05:55] LABS: Hematocrit 27 % (42-52); Hemoglobin 9.3 g/dl (14.0-18.0); Mean Corpuscular HGB Conc 34 g/dl (31-36); Mean Corpuscular Hemoglobin 30 pg (27-31); Mean Corpuscular Volume 88 fL (80-94); Mean Platelet Volume 10 um3 (7.4-10.4); Red Blood Count 3.12 10^6/ul (4.0-5.4); Red Cell Distribution Width 16 % (10.5-15); White Blood Count 12.5 10^3/ul (3.5-10.8)
[2016-05-07 06:17] LABS: BUN/Creatinine Ratio 15.1 (8-20); Calcium 9.2 mg/dL (8.6-10.3); EGFR African American 130.1 (>60); EGFR Non-African American 101.2 (>60)
[2016-05-07 06:22] LABS: Potassium 3.8 mmol/L (3.5-5.0)
[2016-05-07] MEDS: LORazepam INJ* 2 MG/ML 1 ML VIAL IV PUSH PRN ×7 (06:30→22:59)
--- NOTE | 2016-05-07 08:09 | RAD ---
INDICATION: Pneumonia COMPARISON: Most recent chest x-ray May 06, 2016 and the admission chest x-ray April 29, 2016 TECHNIQUE: Single AP portable view of the chest was obtained. FINDINGS: Image quality is compromised due to the relative inferiority of a portable chest x-ray. The lines and tubes, including the endotracheal tube gastric tube and right-sided subclavian Mediport, are unchanged from previous imaging. The heart and mediastinum exhibit normal size and contour. There is persistent reticular nodular density seen diffusely over both lungs but there is overall improved aeration when compared to the previous day chest x-ray. There is no evidence of a large pleural effusion. Visualized bones are normal for the patient's age. IMPRESSION: Persistent reticulonodular densities, which could be fluid overload, drug toxicity or pneumonitis, but improved from the previous day chest x-ray.
[2016-05-07] MEDS: Enoxaparin(*) 40 MG/0.4 ML SYR SUBCUT SCH (09:18)
[2016-05-07] MEDS: predniSONE TAB* 20 MG PO SCH ×2 (09:18→21:50)
[2016-05-07] MEDS: Lansoprazole SOLUTAB* 30 MG G TUBE SCH (09:18)
[2016-05-07] MEDS ORDERED: Haloperidol INJ IV/IM* 5 MG/ML AMP ONE (09:54)
[2016-05-07] MEDS ORDERED: Haloperidol INJ IV/IM* 5 MG/ML AMP IV SLOW PU ONE (10:00)
[2016-05-07] MEDS ORDERED: LORazepam INJ* 2 MG/ML 1 ML VIAL IV PUSH ONE ×3 (10:00→23:00)
[2016-05-07] MEDS: Cefepime(*) 1 GM in NS 0.9% 50 ML* 50 ML IVPB SCH ×2 (12:28→23:52)
[2016-05-07] MEDS: Sulfamethox/Trimethoprim SUSP* 20 ML UDC PO SCH ×3 (12:49→23:54)
[2016-05-07] MEDS ORDERED: Furosemide IV* 10 MG/ML VIAL (40 MG) IV ONE (15:45)
[2016-05-07] MEDS ORDERED: Furosemide IV* 10 MG/ML 10 ML VIAL (100 MG) IV ONE (16:07)
--- NOTE | 2016-05-07 16:43 | PN ---
Progress Note - Progress Note SOAP: Subjective: []Unable to wean off vent d/t resp. effort and significant anxiety/ restlessness. Very restless and easily distressed per nursing and mother's report. Sedated but responding to voice Medications: Chlorhexidine Gluconate (Peridex Mouth Wash 0.12%*) 15 ml TOPICAL Q4HR [facility] Last Admin: 05/07/16 14:17 Dose: 15 ml Enoxaparin Sodium (Lovenox(*)) 40 mg SUBCUT Q24H KATHIE Last Admin: 05/07/16 09:18 Dose: 40 mg Fentanyl Citrate (Fentanyl*) 50 mcg IV Q2H PRN PRN Reason: ANXIETY Last Admin: 05/07/16 12:45 Dose: 50 mcg Heparin Sodium (Porcine) (Heparin Flush Picc/Ml/Cvc(*)) 1 - 3 ml FLUSH 0600, 1800 KATHIE PRN Reason: Protocol Last Admin: 05/07/16 06:19 Dose: Not Given Cefepime HCl 1 gm/ Sodium (Chloride) 50 mls @ 100 mls/hr IVPB Q12H [facility] Last Admin: 05/07/16 12:28 Dose: 100 mls/hr Voriconazole 200 mg/ Sodium (Chloride) 120 mls @ 120 mls/hr IVPB Q12H [facility] Last Admin: 05/07/16 11:25 Dose: 120 mls/hr Fentanyl Citrate (Fentanyl Reliability Manager*) 20 mls @ 3 mls/hr COMMERCIAL RELIEF DRIVER .change Q24H KATHIE PRN Reason: 150 MCG/HR Last Admin: 05/07/16 06:46 Dose: 3 mls/hr Propofol (Diprivan*) 100 mls @ 51.504 mls/hr IV .(Initial Rate) KATHIE; 80 MCG/KG/ MIN PRN Reason: Protocol Last Admin: 05/07/16 15:45 Dose: 57.8 mls/hr Dexmedetomidine HCl (Precedex*) 50 mls @ 5.365 mls/hr IVPB .(Initial Rate) KATHIE PRN Reason: 0.2 MCG/KG/HR Last Admin: 05/07/16 11:21 Dose: 5.365 mls/hr Lansoprazole (Prevacid Solutab*) 30 mg G TUBE DAILY [facility] Last Admin: 05/07/16 09:18 Dose: 30 mg Lorazepam (Ativan Inj*) 2 mg IV PUSH Q3H PRN PRN Reason: ANXIETY Last Admin: 05/07/16 16:17 Dose: 2 mg Prednisone (Deltasone Tab*) 40 mg PO BID [facility] Last Admin: 05/07/16 09:18 Dose: 40 mg Trimethoprim/Sulfamethoxazole (Bactrim Susp*) 40 ml PO Q6HR [facility] Last Admin: 05/07/16 12:49 Dose: 40 ml Objective: [] Vital Signs Temp Pulse Resp BP Pulse Ox 99.5 F 84 11 112/63 97 05/07/16 15:00 05/07/16 15:00 05/07/16 16:17 05/07/16 15:00 05/07/16 15:00 Sedated but responsive to voice HRR LS with rhonchi noted, ventilator support + edema Laboratory Results - last 24 hr 05/07/16 05/07/16 05:45 05:45 WBC 12.5 H RBC 3.12 L Hgb 9.3 L Hct 27 L MCV 88 MCH 30 MCHC 34 RDW 16 H Plt Count 192 MPV 10 Sodium 133 Potassium 3.8 Chloride 96 L Carbon Dioxide 29 Anion Gap 8 BUN 13 Creatinine 0.86 Est GFR ( Amer) 130.1 Est GFR (Non-Af Amer) 101.2 BUN/Creatinine Ratio 15.1 Glucose 104 H Calcium 9.2 Microbiology 05/06/16 06:58 Body Fluid - Bronchoaveolar Gram Stain - Final 04/30/16 19:44 Blood Venous Aerobic Blood Culture - Final No Growth Day 5 04/30/16 19:44 Blood Venous Anaerobic Blood Culture - Final No Growth Day 5 04/30/16 19:44 Blood Venous Blood Culture - Final 05/05/16 11:50 Body Fluid Acid Fast Bacilli Smear - Final 05/03/16 14:57 Sputum Gram Stain - Final 05/03/16 14:57 Sputum Sputum Culture - Final Normal Sandie 04/30/16 05:33 Blood Venous Aerobic Blood Culture - Final No Growth Day 5 04/30/16 05:33 Blood Venous Anaerobic Blood Culture - Final No Growth Day 5 04/30/16 05:33 Blood Venous Blood Culture - Final 04/29/16 21:45 Blood Venous Aerobic Blood Culture - Final No Growth Day 5 04/29/16 21:45 Blood Venous Anaerobic Blood Culture - Final No Growth Day 5 04/29/16 21:45 Blood Venous Blood Culture - Final 04/30/16 13:45 Cerebral Spinal Fluid CSF Gram Stain (Tube 3) - Final 04/30/16 13:45 Cerebral Spinal Fluid CSF Culture - Final No Growth Day 4 05/02/16 00:47 Urine Streptococcus pneumoniae Ag Screen - Final Negative S. pneumo Antigen 05/01/16 09:00 Nasal Nasal Screen MRSA (PCR)(ARVIN) - Final Mrsa Negative 04/29/16 22:22 Nasal Influenza Types A,B Antigen (ARVIN) - Final Specimen received for Influenza A/B Molecular testing Assessment: []36 yo with non-hodgkins lymphoma admitted initially with PNA, now in the ICU requiring ventilator support with question of obstruction vs. infection. He has had no growth on samples but remains very immunosuppressed (chemotherapy with IgG approx. 550). Plan: []Per ICU, but agree with decreasing fluid volume, but with presentation would be cautious to wean too quickly. Discussed with Dr. Holloway who will see him in the AM. No changes per oncology today. Case discussed with Dr. Hodge.
--- NOTE | 2016-05-07 16:51 | PN ---
Critical Care Services: Patient remains on ventilator - attempts to reduce ventilatory assistance result in respiratory distress. Vital Signs: Temp Pulse Resp BP SpO2 FiO2 99.5 F 84 11 112/63 97 70 Physical Exam: Gen:Unresponsive (on multiple sedatives) Lungs:No wheezes or crackles Cardiac: reg rhythm Abdomen: Not distended. Extremities:1+ edema Fluid Balance (Past 24 Hours): 05/07/16 06:59 Intake Total 2120.1 Output Total 4185 Balance -2064.9 Weight 223 lb Intake: IV Fluids 616.9 NS KVO 616.9 IVPB 221 ABX 150 ABX - AZITHROMYCIN ABX - CEFEPIME NS KVO 71 Medicated IV 1232.2 CC - Dexmedetomidine/ 98.2 Precedex CC - Propofol/Diprivan 1134 IV Narcotic Infusion Fentanyl Tube Feeding Tube Feeding Flush Amount Packed Cells NG Tube Irrigate Amount 50 Output: NG Tube Drainage Amount 600 G Tube Dominguez 3585 Tube Feeding Residual Amount Wasted Labs: 05/07/16 05/07/16 05:45 05:45 WBC 12.5 H Hgb 9.3 L Hct 27 L Plt Count 192 Sodium 133 Potassium 3.8 Chloride 96 Carbon Dioxide 29 Anion Gap 8 BUN 13 Creatinine 0.86 Glucose 104 Calcium 9.2 Studies: CXR: Fine. reticulated infiltrate on right. Nutrition: Tube feedings: have been held because of high residuals. Impression: 1. Continues to be ventilator-dependent. 2. No pathogen identified. 3.) No evidence of active infectious process in the lungs. Plan: 1. Will continue wean attempts - if unable to wean after 7 days, would consider tracheostomy. 2. Think we can start to remove some of the empiric antimicrobial coverage - will discuss with oncology service. Patient's parents were present at bedside and were informed of the current medical problems. Critical Care Time: 40 minutes
[2016-05-07] MEDS ORDERED: fentaNYL* 50 MCG/ML 2 ML VIAL (100 MCG VIAL) ONE (23:11)
[2016-05-07] MEDS ORDERED: fentaNYL* 50 MCG/ML 2 ML VIAL (100 MCG VIAL) IV PRN (23:15)
[2016-05-07] MEDS ORDERED: fentaNYL* 50 MCG/ML 2 ML VIAL (100 MCG VIAL) IV ONE (23:20)
[2016-05-08] MEDS: fentaNYL PCA* 20 ML PCA SCH ×4 (00:11→18:38)
[2016-05-08] MEDS: Chlorhexidine MOUTHWASH 0.12%* 15 ML UDC TOPICAL SCH ×6 (01:32→22:03)
[2016-05-08] MEDS: Propofol* 100 ML IV SCH ×10 (03:53→21:11)
[2016-05-08] MEDS ORDERED: Bisacodyl SUPP* 10 MG SUPP PR PRN (05:55)
[2016-05-08] MEDS: Sulfamethox/Trimethoprim SUSP* 20 ML UDC PO SCH (05:56)
[2016-05-08 06:00] LABS: Hematocrit 30 % (42-52); Hemoglobin 9.9 g/dl (14.0-18.0); Mean Corpuscular HGB Conc 33 g/dl (31-36); Mean Corpuscular Hemoglobin 30 pg (27-31); Mean Corpuscular Volume 89 fL (80-94); Mean Platelet Volume 9 um3 (7.4-10.4); Red Blood Count 3.35 10^6/ul (4.0-5.4); Red Cell Distribution Width 16 % (10.5-15); White Blood Count 16.6 10^3/ul (3.5-10.8)
[2016-05-08] MEDS ORDERED: Bisacodyl SUPP* 10 MG SUPP ONE (06:04)
[2016-05-08] MEDS: fentaNYL* 50 MCG/ML 2 ML VIAL (100 MCG VIAL) IV PRN ×5 (06:06→23:26)
[2016-05-08 06:14] LABS: BUN/Creatinine Ratio 18.5 (8-20); Blood Urea Nitrogen 17 mg/dL (6-24); CO2 Carbon Dioxide 29 mmol/L (22-32); Calcium 9.5 mg/dL (8.6-10.3); Chloride 97 mmol/L (101-111); EGFR African American 120.4 (>60); EGFR Non-African American 93.6 (>60); Glucose 124 mg/dL (70-100); Sodium 136 mmol/L (133-145)
--- NOTE | 2016-05-08 08:00 | RAD ---
INDICATION: Pneumonia COMPARISON: Similar radiograph from the previous day dated May 07, 2016 TECHNIQUE: Single AP portable view of the chest was obtained. FINDINGS: Image quality is compromised due to the relative inferiority of a portable chest x-ray. Lines and tubes including the endotracheal tube, gastric tube and right subclavian vein Mediport unchanged from the previous radiograph. Relative to the previous chest x-ray there is interval worsening aeration with more confluent densities overlying the medial aspect of the right lung and bilateral central air bronchograms. There is bilateral costophrenic angle blunting worse on the left than the right. Visualized bones are normal for the patient's age. IMPRESSION: Overall worsening aeration relative to the previous day chest x-ray including development of right greater than left central air bronchograms.
--- NOTE | 2016-05-08 08:40 | PN ---
Progress Note - Progress Note SOAP: Subjective: respiratory status worsening. continued agitation requiring significant sedation. Objective: Vital Signs Temp Pulse Resp BP Pulse Ox 99.2 F 85 20 100/64 93 05/08/16 06:00 05/08/16 06:00 05/08/16 06:06 05/08/16 06:00 05/08/16 06:00 sedated scattered rhonchi, prolonged exp phase s1 s2 nl soft nt +bs trace LE edema intubated, sedated Laboratory Results - last 24 hr 05/08/16 05/08/16 05/08/16 05:42 05:42 06:30 WBC 16.6 H RBC 3.35 L Hgb 9.9 L Hct 30 L MCV 89 MCH 30 MCHC 33 RDW 16 H Plt Count 189 MPV 9 Sodium 136 Potassium TNP TNP Chloride 97 L Carbon Dioxide 29 Anion Gap TNP BUN 17 Creatinine 0.92 Est GFR ( Amer) 120.4 Est GFR (Non-Af Amer) 93.6 BUN/Creatinine Ratio 18.5 Glucose 124 H Calcium 9.5 CXR: worsening bilateral infiltrates vs. fluid Bisacodyl (Dulcolax Supp*) 10 mg NM DAILY PRN PRN Reason: CONSTIPATION Last Admin: 05/08/16 06:18 Dose: 10 mg Chlorhexidine Gluconate (Peridex Mouth Wash 0.12%*) 15 ml TOPICAL Q4HR [facility] Last Admin: 05/08/16 05:56 Dose: 15 ml Enoxaparin Sodium (Lovenox(*)) 40 mg SUBCUT Q24H [facility] Last Admin: 05/07/16 09:18 Dose: 40 mg Fentanyl Citrate (Fentanyl*) 50 mcg IV Q2H PRN PRN Reason: ANXIETY Last Admin: 05/07/16 12:45 Dose: 50 mcg Fentanyl Citrate (Fentanyl*) 100 mcg IV Q2H PRN PRN Reason: AGITATION Last Admin: 05/08/16 06:06 Dose: 100 mcg Heparin Sodium (Porcine) (Heparin Flush Picc/Ml/Cvc(*)) 1 - 3 ml FLUSH 0600, 1800 [facility] PRN Reason: Protocol Last Admin: 05/08/16 05:56 Dose: 1 ml Cefepime HCl 1 gm/ Sodium (Chloride) 50 mls @ 100 mls/hr IVPB Q12H [facility] Last Admin: 05/07/16 23:52 Dose: 100 mls/hr Fentanyl Citrate (Fentanyl Undertaker Assistant*) 20 mls @ 5 mls/hr MOTOR AND CONTROLS TESTER .change Q24H KATHIE PRN Reason: 250 MCG/HR Last Admin: 05/08/16 03:52 Dose: 5 mls/hr Propofol (Diprivan*) 100 mls @ 51.504 mls/hr IV .(Initial Rate) KATHIE; 80 MCG/KG/ MIN PRN Reason: Protocol Last Admin: 05/08/16 07:45 Dose: 76.1 mls/hr Lansoprazole (Prevacid Solutab*) 30 mg G TUBE DAILY KATHIE Last Admin: 05/07/16 09:18 Dose: 30 mg Lorazepam (Ativan Inj*) 2 mg IV PUSH Q1H PRN PRN Reason: ANXIETY Prednisone (Deltasone Tab*) 40 mg PO DAILY KATHIE Assessment: 36 yo M w 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 He is now intubated with worsening respiratory status. His initial CXR after intubation improved markedly arguing for atelectasis rather than infection. cultures are negative to date and he has been on Abx for 8 days. We will plan to taper off some of the abx, though I think keeping cefepime for now makes sense. We will discontinue the voriconazole given no clear evidence of fungal infection and rapidity of improvement of imaging initially after intubation. Plan: -stop voriconazole and bactrim -decrease prednisone to 40 mg daily -cont cefepime -check CTA when stable to assess for worsening SVC syndrome, PE, and interstitial disease -?utility of ECMO if O2 requirements continue to be this high full code
[2016-05-08] MEDS: predniSONE TAB* 20 MG PO SCH (09:00)
[2016-05-08] MEDS: Lansoprazole SOLUTAB* 30 MG G TUBE SCH (09:00)
--- NOTE | 2016-05-08 09:24 | RAD ---
HISTORY: Swelling, edema of lower extremities COMPARISONS: None relevant TECHNIQUE: Multiple transverse and longitudinal ultrasound images were obtained of the bilateral lower extremities from the level of the common femoral vein inferiorly through to the infrapopliteal veins using grayscale, color Doppler, and spectral Doppler imaging with and without compression and with augmentation. FINDINGS: VEINS: There is occlusive thrombus noted within the left posterior tibial vein without extension into the popliteal or suprapopliteal venous system. The remainder of the venous system of the bilateral lower extremities is compressible throughout its course, with normal flow on color Doppler imaging and normal response to augmentation on spectral Doppler imaging. SOFT TISSUES: Unremarkable. OTHER FINDINGS: None. IMPRESSION: 1. OCCLUSIVE THROMBUS OF A LEFT CALF PAIN. 2. NO RIGHT LOWER EXTREMITY DEEP VEIN THROMBOSIS
[2016-05-08] MEDS ORDERED: Iohexol 350* (CONTRAST) 500 ML MDV IV ONE (10:37)
[2016-05-08 10:44] LABS: Triglycerides 826 mg/dL
--- NOTE | 2016-05-08 12:11 | RAD ---
INDICATION: Pneumonia; worsening respiratory status. Occlusive thrombosis of a RIGHT calf posterior tibial vein on May 08, 2016 ultrasound. SVC syndrome. Hodgkin's lymphoma. COMPARISON: May 08, 2016 lower extremity venous ultrasound, May 08, 2016 chest radiograph, May 01, 2016 CT. TECHNIQUE: Multidetector CT images were obtained from the lung apices to the upper abdomen with 83 mL Omnipaque 350 IV contrast. Pulmonary angiogram protocol. Multiplanar reformation including with maximum intensity projection. REPORT: Mild improvement in RIGHT lung and worsening in LEFT lung groundglass opacity and crazy paving pattern most confluent in the mid to lower lung zones. Normal lung volumes. Resolution of previous RIGHT pleural effusion. Negative for pneumothorax. Confluent RIGHT superior mediastinal, RIGHT paratracheal, precarinal, and subcarinal lymphadenopathy without change. The coalescent superior mediastinal and RIGHT paratracheal adenopathy measures up to 5.7 cm AP by 3.1 cm transverse without gross change. Subcentimeter short axis bilateral hilar lymph nodes. Endotracheal tube tip approximately 3 cm above the Oliva. Nasogastric tube tip approximating the greater curvature of the gastric body. Tip of RIGHT chest port at level of mid segment of the superior vena cava directed central. Near complete thrombosis of the RIGHT brachiocephalic vein and superior segment of the superior vena cava to the level of the azygos arch. The IV contrast bolus extends through the RIGHT subclavian vein and innumerable small collateral veins about the chest wall and mediastinum. Negative for cardiomegaly or pericardial effusion. Unremarkable thoracic aorta. No filling defects are identified from the main to the subsegmental pulmonary arteries to indicate presence of a pulmonary embolism. Unremarkable Limited images through the upper abdomen. No suspicious osseous lesions evident. IMPRESSION: 1. Negative for pulmonary embolism. 2. Near occlusive thrombosis of the RIGHT brachiocephalic vein and superior segment of the superior vena cava to the level of the azygous arch. 3. Unchanged mediastinal lymphadenopathy. 4. Mild improvement in RIGHT lung and worsening in LEFT lung groundglass opacity and crazy paving pattern most confluent in the mid to lower lung zones. Normal lung volumes. Resolution of previous RIGHT pleural effusion. Consider ARDS as well as interstitial pneumonias.
[2016-05-08] MEDS: Enoxaparin(*) 100 MG/ML SYR SUBCUT SCH ×2 (12:40→22:03)
[2016-05-08] MEDS: Cefepime(*) 1 GM in NS 0.9% 50 ML* 50 ML IVPB SCH ×2 (12:40→23:39)
--- NOTE | 2016-05-08 16:39 | PN ---
Critical Care Services: Remains on ventilator, and has increasing sedation needs - now on propofol at 100 mcg/kg/min and fentanyl at 25 mcg/hr. CTA of chest today shows obstructive thrombus in right brachiocephalic vein extending into the superior vena cava up to the level of the azygos arch. There are no pulmonary emboli on the CTA. Vital Signs: Temp Pulse Resp BP SpO2 FiO2 99.2 F 85 20 100/64 91 80 Physical Exam: Gen:Unresponsive HEENT:Optic discs engorged bilaterally Lungs: Scattered rhonchi Extremities:No cyanosis. 2+edema of upper extremities. Fluid Balance (Past 24 Hours): 05/08/16 06:59 Intake Total 2213.6 Output Total 2450 Balance -236.4 Weight 230 lb Intake: IV Fluids 613 NS KVO 613 IVPB 150 ABX 150 NS KVO Medicated IV 1450.6 CC - Dexmedetomidine/ 84.6 Precedex CC - Propofol/Diprivan 1366 IV Narcotic Infusion Fentanyl Oral 0 Tube Feeding Flush Amount Packed Cells NG Tube Irrigate Amount Output: NG Tube Drainage Amount G Tube Dominguez 2450 Labs: 05/08/16 05/08/16 05:42 05:42 WBC 16.6 H RBC 3.35 L Hgb 9.9 L Hct 30 L MCV 89 MCH 30 MCHC 33 RDW 16 H Plt Count 189 MPV 9 Sodium 136 Potassium TNP Chloride 97 L Carbon Dioxide 29 Anion Gap TNP BUN 17 Creatinine 0.92 Glucose 124 H Calcium 9.5 05/08/16 09:20 Triglycerides 826 Studies: CTA of thorax: Results as mentioned Nutrition: Tube feedings held because of high RVs Impression: 1. Superior vena cava syndrome (from thrombotic obstruction and external compression), which explains the patient's agitation. Eye exam is consistent with increased intracranial pressure. This is the major problem, as there is not extensive infiltration in the lungs on CT scan. Increased A-a PO2 gradient in this case could be related to increased intracranial pressure. Plan: 1. Have started heparin anticoagulation. Patient has already received radioRx and chemoRx for this problem, so our options are limited. 2. Because of elevated triglycerides, will attempt to reduce propofol infusion. Critical Care Time: 45 minutes
[2016-05-08] MEDS ORDERED: LORazepam PREMIX BAG 1MG/ML* 100 MG/100 ML BAG IVPB SCH (17:00)
[2016-05-08] MEDS ORDERED: D5W 50 ML BAG* 50 ML ONE (18:03)
[2016-05-08] MEDS: KCL 20 MEQ/100 ML IVPREMIX* 20 MEQ/100 ML BAG IV SCH ×2 (18:19→19:36)
[2016-05-08] MEDS: LORazepam VIAL (for drip)* 100 MG in D5W 50 ML BAG* 50 ML IVPB SCH (19:07)
[2016-05-08] MEDS: LORazepam INJ* 2 MG/ML 1 ML VIAL IV PUSH PRN ×2 (19:27→22:16)
[2016-05-09] MEDS: Propofol* 100 ML IV SCH ×11 (00:02→22:36)
[2016-05-09] MEDS: Enoxaparin(*) 40 MG/0.4 ML SYR SUBCUT SCH (00:24)
[2016-05-09] MEDS: Chlorhexidine MOUTHWASH 0.12%* 15 ML UDC TOPICAL SCH ×6 (01:38→22:36)
[2016-05-09] MEDS: fentaNYL PCA* 20 ML PCA SCH ×3 (02:30→20:29)
[2016-05-09] MEDS: fentaNYL* 50 MCG/ML 2 ML VIAL (100 MCG VIAL) IV PRN ×2 (04:11→16:27)
[2016-05-09] MEDS: LORazepam VIAL (for drip)* 100 MG in D5W 50 ML BAG* 50 ML IVPB SCH ×2 (04:36→15:45)
[2016-05-09 06:18] LABS: Hematocrit 32 % (42-52); Hemoglobin 10.7 g/dl (14.0-18.0); Mean Corpuscular HGB Conc 33 g/dl (31-36); Mean Corpuscular Hemoglobin 30 pg (27-31); Mean Corpuscular Volume 90 fL (80-94); Mean Platelet Volume 10 um3 (7.4-10.4); Red Blood Count 3.58 10^6/ul (4.0-5.4); Red Cell Distribution Width 16 % (10.5-15)
[2016-05-09 06:29] LABS: BUN/Creatinine Ratio 16.6 (8-20); Blood Urea Nitrogen 25 mg/dL (6-24); CO2 Carbon Dioxide 29 mmol/L (22-32); Calcium 9.9 mg/dL (8.6-10.3); Chloride 96 mmol/L (101-111); EGFR Non-African American 52.9 (>60); Glucose 115 mg/dL (70-100); Sodium 135 mmol/L (133-145); Triglycerides 875 mg/dL
[2016-05-09] MEDS: predniSONE TAB* 20 MG PO SCH (08:20)
[2016-05-09] MEDS: Lansoprazole SOLUTAB* 30 MG G TUBE SCH (08:20)
--- NOTE | 2016-05-09 10:23 | PN ---
Progress Note - Progress Note SOAP: Subjective: [] Vent Events: - CTA with SVC syndrome and thrombosis. Reviewed with radiology. The vein stenosis and LAD are unchanged, thrombosis has propagated. Diffuse pulmonary changes ARDS, compression. - High levels of agitation with suspicion of high ICP Bisacodyl (Dulcolax Supp*) 10 mg DC DAILY PRN PRN Reason: CONSTIPATION Last Admin: 05/08/16 06:18 Dose: 10 mg Chlorhexidine Gluconate (Peridex Mouth Wash 0.12%*) 15 ml TOPICAL Q4HR KATHIE Last Admin: 05/09/16 08:20 Dose: 15 ml Enoxaparin Sodium (Lovenox(*)) 100 mg SUBCUT Q12H KATHIE Last Admin: 05/08/16 22:03 Dose: 100 mg Fentanyl Citrate (Fentanyl*) 50 mcg IV Q2H PRN PRN Reason: ANXIETY Last Admin: 05/07/16 12:45 Dose: 50 mcg Fentanyl Citrate (Fentanyl*) 100 mcg IV Q2H PRN PRN Reason: AGITATION Last Admin: 05/09/16 04:11 Dose: 100 mcg Heparin Sodium (Porcine) (Heparin Flush Picc/Ml/Cvc(*)) 1 - 3 ml FLUSH 0600, 1800 KATHIE PRN Reason: Protocol Last Admin: 05/09/16 05:24 Dose: Not Given Cefepime HCl 1 gm/ Sodium (Chloride) 50 mls @ 100 mls/hr IVPB Q12H [facility] Last Admin: 05/08/16 23:39 Dose: 100 mls/hr Fentanyl Citrate (Fentanyl Component Lab Tech*) 20 mls @ 5 mls/hr PERSONNEL COUNSELOR .change Q24H KATHIE PRN Reason: 250 MCG/HR Last Admin: 05/09/16 05:24 Dose: 5 mls/hr Propofol (Diprivan*) 100 mls @ 51.504 mls/hr IV .(Initial Rate) KATHIE; 80 MCG/KG/ MIN PRN Reason: Protocol Last Admin: 05/09/16 10:11 Dose: 51.504 mls/hr Lorazepam 100 mg/ Dextrose 100 mls @ 3 mls/hr IVPB .(Initial Rate) KATHIE; 3 MG/HR PRN Reason: Protocol Last Admin: 05/09/16 04:36 Dose: 10 mls/hr Lansoprazole (Prevacid Solutab*) 30 mg G TUBE DAILY [facility] Last Admin: 05/09/16 08:20 Dose: 30 mg Lorazepam (Ativan Inj*) 2 mg IV PUSH Q1H PRN PRN Reason: ANXIETY Last Admin: 05/08/16 22:16 Dose: 2 mg Prednisone (Deltasone Tab*) 40 mg PO DAILY [facility] Last Admin: 05/09/16 08:20 Dose: 40 mg Objective: [] Vital Signs Temp Pulse Resp BP Pulse Ox 100.8 F 109 11 104/59 95 05/09/16 09:00 05/09/16 09:00 05/09/16 09:00 05/09/16 09:00 05/09/16 09:00 ON VENT, diffuse edema, sedated. 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 He is now intubated with worsening respiratory status. His initial CXR after intubation improved markedly arguing for atelectasis rather than infection. Cultures are negative to date and he has been on Abx for 8 days. CTA with SVC thrombosis that may be cause of initial illness and recent deterioration. Discussed with patient and family. We had long talk about continued care. Very small chance of survival and then likley progression of his malignancy. Offered thrombolytic therapy. Plan: Family meeting with myself and Dr. Hodge. The have opted for terminal extubation. time with patient and chart: 9:25 - 10:23
[2016-05-09] MEDS: Enoxaparin(*) 100 MG/ML SYR SUBCUT SCH (10:54)
[2016-05-09] MEDS: Cefepime(*) 1 GM in NS 0.9% 50 ML* 50 ML IVPB SCH (12:21)
[2016-05-09] MEDS ORDERED: Alteplase* 100 MG VIAL IVPB ONE (16:00)
[2016-05-09] MEDS ORDERED: Alteplase* 100 MG VIAL ONE (17:04)
--- NOTE | 2016-05-09 18:04 | PN ---
Critical Care Services: Patient is becoming more agitated, and has increasing sedative requirements. He is now on propofol at 80 mcg/kg/min, fentanyl at 250 mcg/min, and ativan at 10 mg/hr). He also has developed O2 desaturation (to 70%) when he is turned in bed. Vital Signs: Temp Pulse Resp BP SpO2 FiO2 101.7 F 106 10 116/69 95 100 Physical Exam: Gen:Unresponsive (on multiple sedatives) HEENT:Pupils midposition and sluggishly reactive. Lungs:Scattered coarse rhonchi. No crackles or wheezes Extremities: Marked swelling of both upper extremities. Fluid Balance (Past 24 Hours): 05/09/16 06:59 Intake Total 1605 Output Total 975 Balance +630 Weight 230 lb Intake: IV Fluids 481 ABX - CEFEPIME NS KVO 481 IVPB 150 ABX NS KVO 150 Medicated IV 974 Ativan 69 CC - Dexmedetomidine/ Precedex CC - Propofol/Diprivan 905 Oral Output: NG Tube Drainage Amount Dominguez 825 Tube Feeding Residual 150 Amount Wasted Labs: 05/09/16 05/09/16 05:45 05:45 WBC 28.0 H Hgb 10.7 L Hct 32 L Plt Count 242 MPV 10 Sodium 135 Potassium TNP Chloride 96 L Carbon Dioxide 29 Anion Gap TNP BUN 25 H Creatinine 1.51 H Glucose 115 H Calcium 9.9 Triglycerides 875 Studies: None today Nutrition: Tube feedings held because of very high residual volumes. Impression: Increasing agitation likely represents worsening SVC obstruction with increased ICP. Plan: After long and careful deliberation, the physicians invooved in this case have decided to give thrombolytic therapy for the thrombotic SVC occlusion. If this does not result in considerable improvement in patients mentation and gas exchange, then there is nothing further that can be done to improve this patient 's chances of survival.
[2016-05-10] MEDS: fentaNYL PCA* 20 ML PCA SCH ×2 (00:25→11:33)
[2016-05-10] MEDS: Propofol* 100 ML IV SCH ×3 (00:50→07:48)
[2016-05-10] MEDS: Chlorhexidine MOUTHWASH 0.12%* 15 ML UDC TOPICAL SCH ×3 (02:25→10:19)
[2016-05-10] MEDS: Lansoprazole SOLUTAB* 30 MG G TUBE SCH (08:01)
[2016-05-10] MEDS ORDERED: Dexamethasone IV* 40 MG in NS 0.9% 50 ML* 50 ML IVPB SCH (09:00)
--- NOTE | 2016-05-10 09:37 | PN ---
Progress Note - Progress Note SOAP: Subjective: events of yesterday reviewed. still w significant hypoxia and agitation on vent. vent continues to alarm. Objective: Vital Signs Temp Pulse Resp BP Pulse Ox 100.9 F 124 14 126/94 96 05/10/16 09:00 05/10/16 09:00 05/10/16 09:00 05/10/16 09:00 05/10/16 09:00 agitated, did not exam as vents alarm when touched Assessment: 36 yo M w primary refractory DLBCL with agitation and respiratory distress likely related to SVC syndrome +/- infection, terminally ill at this point. I had an extensive and pointed conversation with the family including his fiancee and HCP. He did not respond to thrombolytics clinically. At this point the humane thing to do is to terminally extubate and make as comfortable as possible. As sad as they are, they are all in agreement today. The current plan is allow family to come in groups to say goodbye and then terminally extubate.
[2016-05-10 11:17] VITALS: BP 145/95
[2016-05-10] MEDS ORDERED: fentaNYL* 50 MCG/ML 2 ML VIAL (100 MCG VIAL) ONE (11:27)
[2016-05-10] MEDS ORDERED: Morphine INJ* 10 MG/ML 1 ML CARPUJECT ONE (11:28)
[2016-05-10] MEDS ORDERED: Morphine PCA ADULT* 5 MG/ML 30 ML ONE (11:28)
[2016-05-10] MEDS: fentaNYL* 50 MCG/ML 2 ML VIAL (100 MCG VIAL) IV PRN (11:55)
[2016-05-10] MEDS ORDERED: Morphine PCA 5 MG/ML * Titrate per Protocol PCA SCH (13:00)
--- NOTE | 2016-05-10 22:32 | DS ---
SUMMARY: DATE OF ADMISSION: 04/30/16 DATE : 05/10/16 HISTORY OF PRESENT ILLNESS: This patient was a 36-year-old white male with a history of large B-mehreen l lymphoma, status post chemotherapy and radiation, who was admitted with headache and a right lower lobe pneumonia. During the hospitalization, the patient required intubation and mechanical ventila tion for the pneumonia. Because of the patient's severe agitation, a CAT scan of the chest was perf ormed with contrast and thrombotic obstruction of the right brachiocephalic vein and superior vena c wendi was noted (the patient had superior vena cava obstruction when the lymphoma was first diagnosed) . After discussion with the physicians involved and the family, it was decided to try thrombolytic therapy in an attempt to relieve the thrombotic obstruction and that was done on the evening of 04/23 10/06. There was no apparent improvement after lytic therapy and at that time, the decision was made to remove the patient from ventilatory support. That was done on the morning of 05/10/16 with imme diate family present at the bedside. The patient was removed from mechanical ventilation and approxi mately 30 minutes later, was pronounced . Autopsy was requested, but denied. FINAL DIAGNOSES: 1. 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 2. Pneumonia. [id number]/[id number] #: [id number]
== END 2016-05-10 12:03 | disposition expired | DRG 130 ==
LOC: ED 21:25 → MED 04-30 01:22 → ICU 05-01 08:24
PROVIDERS: ADMIT Pediatrics; ATTEND Internal Medicine Critical Care Medicine
PROC: 30233N1 Transfusion of Nonautologous Red Blood Cells into Peripheral Vein, Percutaneous Approach (ICD-10-PCS; 2016-04-30)
PROC: 009U3ZX Drainage of Spinal Canal, Percutaneous Approach, Diagnostic (ICD-10-PCS; 2016-04-30)
PROC: 5A1955Z Respiratory Ventilation, Greater than 96 Consecutive Hours (ICD-10-PCS; principal; 2016-05-03)
PROC: 0BH17EZ Insertion of Endotracheal Airway into Trachea, Via Natural or Artificial Opening (ICD-10-PCS; 2016-05-03)
PROC: 0B948ZX Drainage of Right Upper Lobe Bronchus, Via Natural or Artificial Opening Endoscopic, Diagnostic (ICD-10-PCS; 2016-05-05)
PROC: 0B958ZX Drainage of Right Middle Lobe Bronchus, Via Natural or Artificial Opening Endoscopic, Diagnostic (ICD-10-PCS; 2016-05-05)
PROC: 0BC28ZZ Extirpation of Matter from Carina, Via Natural or Artificial Opening Endoscopic (ICD-10-PCS; 2016-05-05)
PROC: 0BC48ZZ Extirpation of Matter from Right Upper Lobe Bronchus, Via Natural or Artificial Opening Endoscopic (ICD-10-PCS; 2016-05-05)
DX: J18.9 Pneumonia, unspecified organism (principal); N17.9 Acute kidney failure, unspecified; T17.590A Other foreign object in bronchus causing asphyxiation, initial encounter; I82.210 Acute embolism and thrombosis of superior vena cava; C83.30 Diffuse large B-cell lymphoma, unspecified site; D64.81 Anemia due to antineoplastic chemotherapy; I87.1 Compression of vein; J96.01 Acute respiratory failure with hypoxia; J98.11 Atelectasis; I82.290 Acute embolism and thrombosis of other thoracic veins; Z91.048 Other nonmedicinal substance allergy status; Z86.718 Personal history of other venous thrombosis and embolism; K21.9 Gastro-esophageal reflux disease without esophagitis; F41.9 Anxiety disorder, unspecified; F32.9 Major depressive disorder, single episode, unspecified; Z80.52 Family history of malignant neoplasm of bladder; Z87.891 Personal history of nicotine dependence; Z82.49 Family history of ischemic heart disease and other diseases of the circulatory system; R73.9 Hyperglycemia, unspecified; Z88.0 Allergy status to penicillin; X58.XXXA Exposure to other specified factors, initial encounter; Y92.9 Unspecified place or not applicable
CPT/HCPCS: 31624; 36415; 70450; 71010; 71250; 71275; 80048; 80053; 80202; 81003; 82550; 82607; 82784; 82945; 83605; 83615; 83735; 83880; 84100; 84157; 84478; 84484; 85014; 85018; 85025; 85027; 85045; 85384; 85610; 85730; 86140; 86850; 86880; 86900; 86901; 86922; 87015; 87040; 87070; 87077; 87102; 87109; 87116; 87205; 87206; 87252; 87254; 87497; 87502; 87581; 87641; 87798; 87899; 88112; 88184; 88185; 88187; 88188; 88312; 89051; 93970; 94002; 94003; 94760; 99233; A9270-GY; J0330; J0456; J0461; J0692; J1100; J1170; J1200; J1630; J1650; J1940; J2060; J2270; J2405; J2704; J2765; J2997; J3010; J3370; J3465; J3475; J3480; J7512; P9040; Q9967